=== PATIENT | female | born 1945 | race Caucasian/White ===

== ENCOUNTER 2017-05-02 00:08 | Inpatient (IN) | payer MEDICARE, MEDICAID ==
[2017-05-02] VITALS (14 sets, daily range): BP systolic 136–190; BP diastolic 54–78
[~2017-05-02] VITALS: Ht 167.6 cm; Wt 78.1 kg
[~2017-05-02 00:08] MED LIST: ALIS1TAB2 PO; ASPI-612 PO; ASPI325T11 PO; ASPI81TA44 PO; CHOL5000 PO; CLOP75TA57 PO; CRESTOR20 MG PO; DOCU-109 PO; EZET10TA18 PO; MOME13HF IH; Metoprolol Tartrate PO; NITR0.4T SL; TICA90TA PO; TIOT18CA IH; VALS320T2 PO
[2017-05-02] MEDS ORDERED: RANO500T2 PO (01:31)
[2017-05-02] MEDS ORDERED: RANI-275 PO (01:31)
[2017-05-02] MEDS ORDERED: CARV25TA2 PO (01:31)
[2017-05-02] MEDS ORDERED: VENTOLIN HFA18 GM INH (01:31)
[2017-05-02] MEDS ORDERED: PRAS10TA9 PO (01:31)
[2017-05-02] MEDS ORDERED: UMEC62.5 INH (01:31)
[2017-05-02] MEDS ORDERED: ONDANSETRON PF 4 MG/2 ML VIAL. IV PRN (06:45)
[2017-05-02] MEDS ORDERED: hydrALAZINE 20 MG/ML VIAL. IVP PRN (06:45)
[2017-05-02 07:43] LABS: HEMATOCRIT 38.9 % (36.0-47.0); HEMOGLOBIN 12.8 g/dL (12.0-15.5); RED BLOOD COUNT 4.17 x10^6/uL (3.50-5.40); RED CELL DISTRIBUTION WIDTH 13.5 % (11.5-14.5); WHITE BLOOD COUNT 5.6 x10^3/uL (4.0-11.0)
[2017-05-02 07:54] LABS: CALCIUM 8.7 mg/dL (8.5-10.1); CREATININE 1.3 mg/dL (0.6-1.0); GFR 40.3; MAGNESIUM 1.8 mg/dL (1.8-2.4); POTASSIUM 3.7 mmol/L (3.5-5.1)
[2017-05-02 08:04] LABS: INR 1.1 (0.8-1.1); PROTHROMBIN TIME PATIENT 13.9 SEC (11.7-14.0)
[2017-05-02] MEDS ORDERED: FLU VACC QS2017-18 (36MOS+)/PF 0.5 ML SYRINGE. VAX IM ONE (09:00)
--- NOTE | 2017-05-02 10:59 | CONS ---
DATE OF CONSULTATION: 05/02/2017 REASON FOR CONSULTATION: Bradycardia. HISTORY OF PRESENT ILLNESS: The patient is a pleasant 71-year-old woman who comes in to the hospital today in the setting of bradycardia. She does take carvedilol 25 mg b.i.d. and at home apparently has been having some lightheadedness and dizziness; and recently, prior to presentation, she had a syncopal event at the grocery store. Upon arrival to the ER, she was noted to be bradycardic with a heart rate of 38 and received 0.5 mg of atropine. She ultimately also was noted to have intermittent Mobitz type II block. She denies any chest pain, orthopnea, PND or lower extremity edema. She reports compliance with her medications. PAST MEDICAL HISTORY: 1. Coronary artery disease, status post PCI to the left main. 2. Hypertension. 3. Dyslipidemia. 4. Chronic obstructive pulmonary disease. SOCIAL HISTORY: The patient denies any current alcohol, tobacco or illicit drug use. ALLERGIES: No known drug allergies. HOME CARDIOVASCULAR MEDICATIONS: 1. Carvedilol 25 mg b.i.d. 2. Zetia 10 mg daily. 3. Effient 10 mg daily. 4. Rosuvastatin 20 mg daily. 5. Valsartan 320 mg daily. 6. Aspirin 81 mg daily. REVIEW OF SYSTEMS: Negative for 10 out of 14 systems review, unless otherwise mentioned above in the HPI. PHYSICAL EXAMINATION: VITAL SIGNS: Afebrile, heart rate 70, blood pressure 163/82 and pulse ox 97% on room air. GENERAL: She is alert and oriented, in no acute distress. Orthostatics are negative. HEAD AND NECK EXAMINATION: Unremarkable. CARDIAC: Regular rate and rhythm, without any murmurs, rubs or gallops. LUNGS: Clear to auscultation bilaterally. ABDOMEN: Soft, nontender and nondistended. EXTREMITIES: No clubbing, cyanosis or edema. NEUROLOGIC: No focal deficits. MUSCULOSKELETAL: No trauma. DIAGNOSTIC STUDIES: Hemoglobin 12.8, platelets 142,000. Creatinine 1.3. TSH 2.097. INR 1.1. Telemetry this morning reveals sinus rhythm with appropriate chronotropic response. IMPRESSION: 1. Bradycardia, possibly mediated secondary to medications. 2. Coronary artery disease. 3. Dyslipidemia. 4. Hypertension. RECOMMENDATIONS: 1. At this present time, we would hold her carvedilol and use amlodipine and hydralazine as needed for blood pressure management. 2. The patient is reluctant to get a pacemaker and I discussed the risks and benefits of pacemaker implantation. As an alternative, we will monitor her overnight. If she does not have any significant AV block, then we could consider discharge off of carvedilol and monitoring with Coumadin and ultimately decide if a pacemaker would be indicated. No driving until final determination is made. Thank you for this consultation. ARTHUR PRICE MD DR: CHUY/miguel a JOB#: [id number] / [id number] PATRICIA
[2017-05-02] MEDS: DOCUSATE SODIUM 100 MG CAPSULE. PO SCH ×2 (12:33→21:13)
[2017-05-02] MEDS: EZETIMIBE 10 MG TABLET. PO SCH (12:33)
[2017-05-02] MEDS: PRASUGREL 10 MG TABLET. PO SCH (12:33)
[2017-05-02] MEDS: RANOLAZINE 500 MG TAB.ER.12H PO SCH ×2 (12:33→21:14)
[2017-05-02] MEDS: FAMOTIDINE 20 MG TABLET. PO SCH (12:33)
[2017-05-02] MEDS: CHOLECALCIFEROL (VITAMIN D3) 5,000 UNIT CAPSULE PO SCH (12:34)
--- NOTE | 2017-05-02 13:02 | HP ---
ADMIT DATE: 05/02/2017 CHIEF COMPLAINT: Symptomatic bradycardia with syncope. HISTORY OF PRESENT ILLNESS: The patient is a pleasant 71-year-old female who was watching TV and she passed out. She was out for about 30 seconds. She states she awoke and then had two more episodes. The ambulance was called. She was noted the heart rate into the 30s. It should be noted that she is on negative chronotropic agents including Coreg. I have discussed the case with ER physician. We are going to admit the patient, hold her Coreg and consult Cardiology. PAST MEDICAL HISTORY: CHF, coronary artery disease, hypertension, hyperlipidemia, COPD, allergic rhinitis and chronic anticoagulation with Effient. ALLERGIES: None. FAMILY HISTORY: Coronary artery disease. SOCIAL HISTORY: She does not drink, smoke or take drugs. MEDICATIONS: Reviewed. REVIEW OF SYSTEMS: GENERAL: No history of weight change, weakness or fevers. SKIN: No bruising, hair changes or rashes. EYES: No blurred, double or loss of vision. NOSE AND THROAT: No history of nosebleeds, hoarseness or sore throat. HEART: No history of palpitations, chest pain or shortness of breath on exertion. LUNGS: Denies cough, hemoptysis, wheezing or shortness of breath. GASTROINTESTINAL: Denies changes in appetite, nausea, vomiting, diarrhea or constipation. GENITOURINARY: No history of frequency, urgency, hesitancy or nocturia. NEUROLOGIC: Denies history of numbness, tingling, tremor or weakness. PSYCHIATRIC: No history of panic, anxiety or depression. ENDOCRINE: No history of heat or cold intolerance, polyuria or polydipsia. EXTREMITIES: Denies muscle weakness, joint pain, pain on walking or stiffness. PHYSICAL EXAMINATION: VITAL SIGNS: Temperature afebrile, pulse 58, respirations 18 and blood pressure 142/90. GENERAL: She is alert and cooperative. HEART: Normal S1 and S2, at 58 beats per minute. LUNGS: Clear. ABDOMEN: Soft. EXTREMITIES: No edema. SKIN: No rashes. ENDOCRINE: No thyromegaly. LYMPHATICS: No cervical nodes. HEMATOPOIETIC: No bruising. LABORATORY DATA: Hematology normal. Electrolytes normal. INR 1.1. ASSESSMENT AND PLAN: Syncopal episode secondary to bradycardia, probably secondary to Coreg. We will hold the Coreg. Consult Cardiology, cardiac enzymes and serial EKGs. Continue other home medicines. Hope to discharge in a day or two if her bradycardia resolves. ERIKA ROBLES DO DR: IVAN/miguel a JOB#: [id number] / [id number]
[2017-05-02] MEDS ORDERED: ATROPINE 0.5 MG/5 ML DISP.SYRIN. IV PRN (17:15)
[2017-05-02] MEDS: ACETAMINOPHEN 325 MG TABLET. PO PRN (19:30)
[2017-05-02] MEDS: ATORVASTATIN CALCIUM 40 MG TABLET. PO SCH (21:13)
[2017-05-03] VITALS (24 sets, daily range): BP systolic 114–190; BP diastolic 45–89
[2017-05-03] MEDS ORDERED: LIDOCAINE 2%/EPI 1:100,000 20 ML VIAL. ONE (07:22)
[2017-05-03] MEDS ORDERED: BACITRACIN 50,000 UNIT in IV NORMAL SALINE 250ML 250 ML IRR ONE (07:45)
--- NOTE | 2017-05-03 07:47 | PDOC ---
MODERATE SEDATION ASSESSMENT RISKS/ALTERNATIVES Risks/Alternatives Risks and alternatives of this type of sedation and procedure discussed with: RISK/ALTERNATIVES: Patient H & P ON CHART H & P H & P on chart and reviewed for co-morbid conditions and appropriate labs. H&P ON CHART: Yes STATUS PREG STATUS ASSESSED: N/A MEDS/ALLERGIES REVIEWED Meds/Allergies Reviewed Medications and Allergies including time and route of recently administered narcotics and sedatives. MEDS/ALLERGIES REVIEWED: Yes ASA RATING ASA RATING: III AIRWAY ASSESSMENT Airway Assessment Airway patency, oral function limitations, presence of caps, crowns, dentures, partials, and ability to extend neck assessed. AIRWAY ASSESSMENT: Yes MALLAMPATI SCORE MALLAMPATI SCORE: III PRE-SEDATION ASSESSMENT PRE-SEDATION ASSESSMENT: Yes ARTHUR PRICE MD May 03, 2017 07:47
[2017-05-03] MEDS ORDERED: fentaNYL PF VIAL 250 MCG/5 ML VIAL ONE (08:03)
[2017-05-03] MEDS ORDERED: MIDAZOLAM HCL/PF 5 MG/5 ML VIAL. ONE (08:03)
[2017-05-03] MEDS ORDERED: LIDOCAINE 2%/EPI 1:100,000 20 ML VIAL. IJ ONE (08:45)
[2017-05-03] MEDS ORDERED: fentaNYL PF VIAL 250 MCG/5 ML VIAL IV ONE (08:45)
[2017-05-03] MEDS ORDERED: MIDAZOLAM HCL/PF 5 MG/5 ML VIAL. IV ONE (08:45)
[2017-05-03] MEDS: PRASUGREL 10 MG TABLET. PO SCH (09:00)
[2017-05-03] MEDS ORDERED: hydrALAZINE 20 MG/ML VIAL. ONE (09:22)
[2017-05-03] MEDS ORDERED: hydrALAZINE 20 MG/ML VIAL. IVP ONE (09:30)
[2017-05-03] MEDS ORDERED: ONDANSETRON PF 4 MG/2 ML VIAL. IV PRN (10:00)
[2017-05-03] MEDS ORDERED: NO ANTICOAGULANT THERAPY. MC PRN (10:00)
--- NOTE | 2017-05-03 11:06 | RAD ---
Single view chest History:Post pacemaker An AP view of the chest is submitted. Comparison: 07/19/2014. Findings: Is single view of the chest is submitted. There has been a median sternotomy, fracture of the second wire from above. Cardiac silhouette is within normal limits. There is dual lead left electronic cardiac device, distal lead closer to the ventricular apex and proximal lead in the region of right atrium. There is no pneumothorax, dependent pleural fluid, lobar infiltrate. Impression: 1. There is left electronic cardiac device, no pneumothorax.
--- NOTE | 2017-05-03 11:19 | PDOC ---
PROGRESS NOTES Chief Complaint Chief Complaint Syncope CHF Coronary artery disease Hypertension Hyperlipidemia COPD Allergic rhinitis History of Present Illness History of Present Illness Pt seen and examined today in the ICU Pt just returning from surgery - cooperative and comfortable Vitals Vitals Vital Signs Date Time Temp Pulse Resp B/P (MAP) Pulse Ox O2 Delivery O2 Flow Rate FiO2 05/03/17 10:00 70 15 114/60 (78) 93 Room Air 05/03/17 09:33 2.0 05/03/17 08:00 98.6 98.6 Physical Exam General: Cooperative, No acute distress Heart: Normal S1, Normal S2 Lungs: Clear, Other (No crackles or wheezes) Abdomen: Normal bowel sounds, Soft Extremities: No clubbing, No cyanosis Skin: No breakdown, No significant lesion Review of Systems Review of Systems General: denies F/C, N/V. Admits to fatigue Assessment and Plan Assessmemt and Plan Assessment: Syncope CHF Coronary artery disease Hypertension Hyperlipidemia COPD Allergic rhinitis Plan: Possible d/c to SNU on Friday Continue home medications Continue cardiac monitoring Consulted PT/OT Recheck labs in am Problems: Comment Review of Relevant I have reviewed the following items surekha (where applicable) has been applied. Labs Laboratory Tests Test 05/02/17 07:25 White Blood Count 5.6 x10^3/uL (4.0-11.0) Red Blood Count 4.17 x10^6/uL (3.50-5.40) Hemoglobin 12.8 g/dL (12.0-15.5) Hematocrit 38.9 % (36.0-47.0) Mean Corpuscular Volume 93 fL (79-100) Mean Corpuscular Hemoglobin 31 pg (25-35) Mean Corpuscular Hemoglobin Concent 33 g/dL (31-37) Red Cell Distribution Width 13.5 % (11.5-14.5) Platelet Count 142 x10^3/uL (140-400) Prothrombin Time 13.9 SEC (11.7-14.0) Prothromb Time International Ratio 1.1 (0.8-1.1) Sodium Level 145 mmol/L (136-145) Potassium Level 3.7 mmol/L (3.5-5.1) Chloride Level 110 mmol/L (98-107) Carbon Dioxide Level 28 mmol/L (21-32) Anion Gap 7 (6-14) Blood Urea Nitrogen 16 mg/dL (7-20) Creatinine 1.3 mg/dL (0.6-1.0) Estimated GFR (Cockcroft-Gault) 40.3 Glucose Level 93 mg/dL (70-99) Calcium Level 8.7 mg/dL (8.5-10.1) Magnesium Level 1.8 mg/dL (1.8-2.4) Thyroid Stimulating Hormone (TSH) 2.097 uIU/mL (0.358-3.74) Medications Current Medications Influenza Virus Vaccine Quadrival (Fluarix Quad 8443-9000 Syringe) 0.5 ml ONCE ONCE VAX IM ; Start 05/02/17 at 09:00; Stop 05/02/17 at 09:01; Status DC Ondansetron HCl (Zofran) 4 mg PRN Q6HRS PRN IV NAUSEA/VOMITING; Start at 06:45 Acetaminophen (Tylenol) 650 mg PRN Q6HRS PRN PO MILD PAIN Last administered on 05/02/17 19:30; Start 05/02/17 at 06:45 Hydralazine HCl (Apresoline Inj) 10 mg PRN Q4HRS PRN IVP ELEVATED BP, SEE COMMENTS; Start 05/02/17 at 06:45 Vitamin D (Vitamin D3) 5,000 unit DAILY PO Last administered on 05/02/17 12: 34; Start 05/02/17 at 09:00 Docusate Sodium (Colace) 100 mg BID PO Last administered on 05/02/17 21:13; Start 05/02/17 at 09:00 EZETIMIBE (Zetia) 10 mg DAILY PO Last administered on 05/02/17 12:33; Start 05/02/17 at 09:00 Ranolazine (Ranexa) 500 mg BID PO Last administered on 05/02/17 21:14; Start 05/02/17 at 09:00 Famotidine (Pepcid) 20 mg DAILY PO Last administered on 05/02/17 12:33; Start 05/02/17 at 09:00 Atorvastatin Calcium (Lipitor) 80 mg QHS PO Last administered on 05/02/17 21: 13; Start 05/02/17 at 21:00 Prasugrel (Effient) 10 mg DAILY PO Last administered on 05/02/17 12:33; Start 05/02/17 at 12:30 Atropine Sulfate 0.5 mg 1X PRN PRN IV PER PROTOCOL; Start 05/02/17 at 17:15 Bacitracin 09541 unit/Sodium Chloride 250 ml @ 250 mls/hr 1X ONCE IRR Last administered on 05/03/17 08:57; Start 05/03/17 at 07:45; Stop 05/03/17 at 08 :44; Status DC Cefazolin Sodium/ Dextrose 50 ml @ 100 mls/hr 1X ONCE IV Last administered on 05/03/17 08:58; Start 05/03/17 at 07:45; Stop 05/03/17 at 08:14; Status DC Midazolam HCl (Versed) 5 mg 1X ONCE IV Last administered on 05/03/17 09:01; Start 05/03/17 at 08:45; Stop 05/03/17 at 08:46; Status DC Fentanyl Citrate (Fentanyl 5ml Vial) 250 mcg 1X ONCE IV Last administered on 05/03/17 09:03; Start 05/03/17 at 08:45; Stop 05/03/17 at 08:46; Status DC Lidocaine/ Epinephrine (Xylocaine 2%-Epi 1:100,000) 40 ml 1X ONCE IJ Last administered on 05/03/17 08:57; Start 05/03/17 at 08:45; Stop 05/03/17 at 08 :46; Status DC Hydralazine HCl (Apresoline Inj) 10 mg 1X ONCE IVP Last administered on 09:48; Start 05/03/17 at 09:30; Stop 05/03/17 at 09:31; Status DC Info 1 ea CONT PRN PRN MC PER PROTOCOL; Start 05/03/17 at 10:00 Cefazolin Sodium 50 ml @ 100 mls/hr 1X ONCE IV ; Start 05/03/17 at 10:00; Stop 05/03/17 at 10:29; Status DC Ondansetron HCl (Zofran) 4 mg PRN Q6HRS PRN IV NAUSEA/VOMITING; Start at 10:00 Oxycodone/ Acetaminophen (Percocet 5/325) 1 tab PRN Q4HRS PRN PO MILD PAIN; Start 05/03/17 at 10:00 Active Scripts Active Aspirin Ec (Aspirin) 81 Mg Tablet. 81 Mg PO [id number] Reported Acid Citrus Fruit Colorer (Ranitidine Hcl) 150 Mg Tablet 150 Mg PO BID Effient (Prasugrel Hcl) 10 Mg Tablet 10 Mg PO DAILY Incruse Ellipta (Umeclidinium Ford) 62.5 Mcg Blst.w.dev 1 Inh INH Carvedilol 25 Mg Tablet 25 Mg PO BID Ventolin Hfa Inhaler (Albuterol Sulfate) 18 Gm Hfa.aer.ad 2 Inh INH Vitamin D3 (Cholecalciferol (Vitamin D3)) 5,000 Unit Capsule 5,000 Unit PO DAILY Colace (Docusate Sodium) 100 Mg Capsule 1 Cap PO BID Crestor (Rosuvastatin Calcium) 20 Mg Tablet 20 Mg PO HS Zetia (Ezetimibe) 10 Mg Tablet 10 Mg PO DAILY Diovan (Valsartan) 320 Mg Tablet 1 Tab PO DAILY Vitals/I & O Vital Sign - Last 24 Hours 05/02/17 05/02/17 05/02/17 05/02/17 12:33 15:00 17:30 18:00 Temp 98.9 98.9 Pulse 63 64 70 Resp 28 24 B/P (MAP) 147/61 159/62 (94) 190/77 (114) Pulse Ox 98 91 O2 Delivery Room Air Room Air Room Air 05/02/17 05/02/17 05/02/17 05/02/17 18:00 19:00 20:00 21:00 Temp 98.5 98.5 Pulse 60 65 63 61 Resp 21 21 22 20 B/P (MAP) 180/69 (106) 175/58 (97) 154/56 (88) 146/58 (87) Pulse Ox 93 95 93 92 O2 Delivery Room Air Room Air Room Air Room Air 05/02/17 05/02/17 05/02/17 05/03/17 21:14 22:00 23:00 00:00 Temp 98.7 98.7 Pulse 62 71 66 62 Resp 24 22 20 B/P (MAP) 146/58 163/78 (106) 171/73 (105) 167/78 (107) Pulse Ox 95 94 93 O2 Delivery Room Air Room Air Room Air 05/03/17 05/03/17 05/03/17 05/03/17 01:00 02:00 03:00 04:00 Temp 98.9 98.9 Pulse 61 58 59 58 Resp 15 14 15 23 B/P (MAP) 164/70 (101) 158/72 (100) 153/58 (89) 164/84 (110) Pulse Ox 91 92 95 93 O2 Delivery Room Air Room Air Room Air Room Air 05/03/17 05/03/17 05/03/17 05/03/17 05:00 06:00 07:00 08:00 Temp 98.6 98.6 Pulse 56 53 54 Resp 18 15 15 B/P (MAP) 182/71 (108) 172/48 (89) 183/60 (101) Pulse Ox 94 92 94 O2 Delivery Room Air Room Air Room Air Room Air 05/03/17 05/03/17 05/03/17 05/03/17 09:00 09:03 09:33 09:48 Pulse 70 75 Resp 16 16 B/P (MAP) Pulse Ox 97 98 O2 Delivery Room Air Nasal Cannula Nasal Cannula O2 Flow Rate 2.0 2.0 05/03/17 10:00 Pulse 70 Resp 15 B/P (MAP) 114/60 (78) Pulse Ox 93 O2 Delivery Room Air Intake and Output 05/02/17 05/02/17 05/03/17 15:00 23:00 07:00 Intake Total 500 ml 250 ml Output Total 500 ml Balance 0 ml 250 ml ERIKA ROBLES III DO May 03, 2017 11:19
[2017-05-03] MEDS: FAMOTIDINE 20 MG TABLET. PO SCH (15:55)
[2017-05-03] MEDS: CHOLECALCIFEROL (VITAMIN D3) 5,000 UNIT CAPSULE PO SCH (15:55)
[2017-05-03] MEDS: DOCUSATE SODIUM 100 MG CAPSULE. PO SCH ×2 (15:55→20:10)
[2017-05-03] MEDS: RANOLAZINE 500 MG TAB.ER.12H PO SCH ×2 (15:55→20:11)
[2017-05-03] MEDS: EZETIMIBE 10 MG TABLET. PO SCH (15:55)
[2017-05-03] MEDS: ATORVASTATIN CALCIUM 40 MG TABLET. PO SCH (20:11)
[2017-05-03] MEDS: oxyCODONE/APAP 5/325 1 TAB TABLET PO PRN (22:18)
[2017-05-04 02:46] VITALS: BP 156/64
[2017-05-04] MEDS: oxyCODONE/APAP 5/325 1 TAB TABLET PO PRN ×2 (02:55→12:45)
[2017-05-04 05:27] LABS: BASO % 0 % (0-3); EOS % 1 % (0-3); HEMATOCRIT 38.5 % (36.0-47.0); HEMOGLOBIN 12.6 g/dL (12.0-15.5); LYMPH # 1.8 x10^3/uL (1.0-4.8); LYMPH % 22 % (24-48); MEAN CORPUSCULAR HEMOGLOBIN 31 pg (25-35); MEAN CORPUSCULAR HGB CONC 33 g/dL (31-37); MEAN CORPUSCULAR VOLUME 95 fL (79-100); MONO % 8 % (0-9); NEUT % 69 % (31-73); PLATELET COUNT 129 x10^3/uL (140-400); RED BLOOD COUNT 4.04 x10^6/uL (3.50-5.40); RED CELL DISTRIBUTION WIDTH 13.8 % (11.5-14.5); WHITE BLOOD COUNT 8.1 x10^3/uL (4.0-11.0)
[2017-05-04 07:00] VITALS: BP 134/75
[2017-05-04 07:23] LABS: CALCIUM 8.9 mg/dL (8.5-10.1); CREATININE 1.2 mg/dL (0.6-1.0); GFR 44.2; POTASSIUM 3.6 mmol/L (3.5-5.1)
[2017-05-04] MEDS: DOCUSATE SODIUM 100 MG CAPSULE. PO SCH ×2 (08:47→20:27)
[2017-05-04] MEDS: EZETIMIBE 10 MG TABLET. PO SCH (08:47)
[2017-05-04] MEDS: FAMOTIDINE 20 MG TABLET. PO SCH (08:47)
[2017-05-04] MEDS: CHOLECALCIFEROL (VITAMIN D3) 5,000 UNIT CAPSULE PO SCH (08:48)
[2017-05-04] MEDS: RANOLAZINE 500 MG TAB.ER.12H PO SCH ×2 (08:48→20:27)
[2017-05-04] MEDS: PRASUGREL 10 MG TABLET. PO SCH (09:00)
--- NOTE | 2017-05-04 10:14 | RAD ---
Two view chest History:1 day post pacemaker implantation . PA and lateral views of the chest are submitted. Comparison: 05/03/2017 Findings: There is again dual lead left electronic cardiac device. No pneumothorax is identified. There again has been a median sternotomy, again fracture of the second counting from above. Heart size is stable. There is mild interstitial opacity somewhat more apparent on this exam although may be due to differences in technique. There is no significant dependent pleural fluid on the lateral view. Impression: There is again dual lead left electronic cardiac device, no pneumothorax.
[2017-05-04 11:00] VITALS: BP 132/70
--- NOTE | 2017-05-04 13:34 | CARD ---
APPROVED REPORT Procedure(s) performed: Moderate sedation: 106 minutes Dual chamber pacemaker implantation HISTORY The patient is a 71 year-old female with a history of : hypertension, dyslipidemia. INDICATION The indication(s) include : arrhythmia, syncope. PROCEDURE NARRATIVE 30 mL of 2% lidocaine was infiltrated into the skin and subcutaneous tissues for local anesthesia. A n incision was made over the left infraclavicular fossa and using blunt dissection and cautery a pock et was created. Venous access was obtained in the left subclavian vein and 9 and 7 Vietnamese sheaths we re inserted. Subsequently, a [employer] bipolar active fixation right ventricular lead model [id number], serial num manju [id number] was advanced under fluoroscopic guidance and the tip was positioned in the right ventri cular apex. Following this, a [employer] bipolar active fixation right atrial lead model [id number], serial number [id number] was placed in the right atrial appendage under fluoroscopy guidance. The le ads were secured into place and were attached to a [employer] dual-chamber permanent pacemaker generato r model [id number], serial number [id number]. This was placed in the pocket that was subsequently closed in 3 layers. Hemostasis was secured. At the end of procedure, the right ventricular lead showed sensing amplitude of 6.1 mV, impedance of 731 ohms and a threshold of 0.75 volts. The right atrial lead showed a sensing amplitude of 5 milliv olts, impedance of 560 ohms and a threshold of 0.75 volts. Patient tolerated the procedure well. The re were no immediate complications. Conclusion 1. Successful insertion of a [employer] Dual Chamber MRI compatible pacemaker for complete heart block and syncope.
--- NOTE | 2017-05-04 14:35 | PDOC ---
PROGRESS NOTES Chief Complaint Chief Complaint History of Present Illness History of Present Illness Pt seen and examined today in the ICU Pt sitting upright in bed Low O2 sat when sleeping Vitals Vitals Vital Signs Date Time Temp Pulse Resp B/P (MAP) Pulse Ox O2 Delivery O2 Flow Rate FiO2 05/04/17 13:45 94 Nasal Cannula 2.0 05/04/17 11:00 97.8 66 18 132/70 (90) 97.8 Physical Exam General: Alert, Oriented X3, Cooperative, No acute distress Heart: Normal S1, Normal S2 Lungs: Clear, Other (No crackles or wheezes) Abdomen: Normal bowel sounds, Soft Extremities: No clubbing, No cyanosis Skin: No breakdown, No significant lesion Labs LABS Laboratory Tests Test 05/04/17 03:30 05/04/17 07:00 White Blood Count 8.1 x10^3/uL (4.0-11.0) Red Blood Count 4.04 x10^6/uL (3.50-5.40) Hemoglobin 12.6 g/dL (12.0-15.5) Hematocrit 38.5 % (36.0-47.0) Mean Corpuscular Volume 95 fL (79-100) Mean Corpuscular Hemoglobin 31 pg (25-35) Mean Corpuscular Hemoglobin Concent 33 g/dL (31-37) Red Cell Distribution Width 13.8 % (11.5-14.5) Platelet Count 129 x10^3/uL (140-400) Neutrophils (%) (Auto) 69 % (31-73) Lymphocytes (%) (Auto) 22 % (24-48) Monocytes (%) (Auto) 8 % (0-9) Eosinophils (%) (Auto) 1 % (0-3) Basophils (%) (Auto) 0 % (0-3) Neutrophils # (Auto) 5.6 x10^3uL (1.8-7.7) Lymphocytes # (Auto) 1.8 x10^3/uL (1.0-4.8) Monocytes # (Auto) 0.6 x10^3/uL (0.0-1.1) Eosinophils # (Auto) 0.1 x10^3/uL (0.0-0.7) Basophils # (Auto) 0.0 x10^3/uL (0.0-0.2) Sodium Level 143 mmol/L (136-145) Potassium Level 3.6 mmol/L (3.5-5.1) Chloride Level 107 mmol/L (98-107) Carbon Dioxide Level 28 mmol/L (21-32) Anion Gap 8 (6-14) Blood Urea Nitrogen 18 mg/dL (7-20) Creatinine 1.2 mg/dL (0.6-1.0) Estimated GFR (Cockcroft-Gault) 44.2 Glucose Level 94 mg/dL (70-99) Calcium Level 8.9 mg/dL (8.5-10.1) Review of Systems Review of Systems Heart: denies any chest pain Lungs: denies any SOA GI: denies any N/V Assessment and Plan Assessmemt and Plan Assessment: Syncope CHF Coronary artery disease Hypertension Hyperlipidemia COPD Allergic rhinitis Plan: Six minute walk test to assess O2 sat. Possible d/c to SNU, awaiting subspecialty input Continue home medications Continue PT/OT Recheck labs in am Follow up with PCP after discharge Problems: Comment Review of Relevant I have reviewed the following items surekha (where applicable) has been applied. Labs Laboratory Tests Test 05/03/17 05:00 05/04/17 03:30 05/04/17 07:00 Nasal Screen MRSA (PCR) Negative (Negative) White Blood Count 8.1 x10^3/uL (4.0-11.0) Red Blood Count 4.04 x10^6/uL (3.50-5.40) Hemoglobin 12.6 g/dL (12.0-15.5) Hematocrit 38.5 % (36.0-47.0) Mean Corpuscular Volume 95 fL (79-100) Mean Corpuscular Hemoglobin 31 pg (25-35) Mean Corpuscular Hemoglobin Concent 33 g/dL (31-37) Red Cell Distribution Width 13.8 % (11.5-14.5) Platelet Count 129 x10^3/uL (140-400) Neutrophils (%) (Auto) 69 % (31-73) Lymphocytes (%) (Auto) 22 % (24-48) Monocytes (%) (Auto) 8 % (0-9) Eosinophils (%) (Auto) 1 % (0-3) Basophils (%) (Auto) 0 % (0-3) Neutrophils # (Auto) 5.6 x10^3uL (1.8-7.7) Lymphocytes # (Auto) 1.8 x10^3/uL (1.0-4.8) Monocytes # (Auto) 0.6 x10^3/uL (0.0-1.1) Eosinophils # (Auto) 0.1 x10^3/uL (0.0-0.7) Basophils # (Auto) 0.0 x10^3/uL (0.0-0.2) Sodium Level 143 mmol/L (136-145) Potassium Level 3.6 mmol/L (3.5-5.1) Chloride Level 107 mmol/L (98-107) Carbon Dioxide Level 28 mmol/L (21-32) Anion Gap 8 (6-14) Blood Urea Nitrogen 18 mg/dL (7-20) Creatinine 1.2 mg/dL (0.6-1.0) Estimated GFR (Cockcroft-Gault) 44.2 Glucose Level 94 mg/dL (70-99) Calcium Level 8.9 mg/dL (8.5-10.1) Laboratory Tests Test 05/04/17 03:30 05/04/17 07:00 White Blood Count 8.1 x10^3/uL (4.0-11.0) Red Blood Count 4.04 x10^6/uL (3.50-5.40) Hemoglobin 12.6 g/dL (12.0-15.5) Hematocrit 38.5 % (36.0-47.0) Mean Corpuscular Volume 95 fL (79-100) Mean Corpuscular Hemoglobin 31 pg (25-35) Mean Corpuscular Hemoglobin Concent 33 g/dL (31-37) Red Cell Distribution Width 13.8 % (11.5-14.5) Platelet Count 129 x10^3/uL (140-400) Neutrophils (%) (Auto) 69 % (31-73) Lymphocytes (%) (Auto) 22 % (24-48) Monocytes (%) (Auto) 8 % (0-9) Eosinophils (%) (Auto) 1 % (0-3) Basophils (%) (Auto) 0 % (0-3) Neutrophils # (Auto) 5.6 x10^3uL (1.8-7.7) Lymphocytes # (Auto) 1.8 x10^3/uL (1.0-4.8) Monocytes # (Auto) 0.6 x10^3/uL (0.0-1.1) Eosinophils # (Auto) 0.1 x10^3/uL (0.0-0.7) Basophils # (Auto) 0.0 x10^3/uL (0.0-0.2) Sodium Level 143 mmol/L (136-145) Potassium Level 3.6 mmol/L (3.5-5.1) Chloride Level 107 mmol/L (98-107) Carbon Dioxide Level 28 mmol/L (21-32) Anion Gap 8 (6-14) Blood Urea Nitrogen 18 mg/dL (7-20) Creatinine 1.2 mg/dL (0.6-1.0) Estimated GFR (Cockcroft-Gault) 44.2 Glucose Level 94 mg/dL (70-99) Calcium Level 8.9 mg/dL (8.5-10.1) Medications Current Medications Influenza Virus Vaccine Quadrival (Fluarix Quad [id number] Syringe) 0.5 ml ONCE ONCE VAX IM ; Start 05/02/17 at 09:00; Stop 05/02/17 at 09:01; Status DC Ondansetron HCl (Zofran) 4 mg PRN Q6HRS PRN IV NAUSEA/VOMITING; Start at 06:45; Stop 05/04/17 at 08:49; Status DC Acetaminophen (Tylenol) 650 mg PRN Q6HRS PRN PO MILD PAIN Last administered on 05/02/17 19:30; Start 05/02/17 at 06:45 Hydralazine HCl (Apresoline Inj) 10 mg PRN Q4HRS PRN IVP ELEVATED BP, SEE COMMENTS; Start 05/02/17 at 06:45 Vitamin D (Vitamin D3) 5,000 unit DAILY PO Last administered on 05/04/17 08: 48; Start 05/02/17 at 09:00 Docusate Sodium (Colace) 100 mg BID PO Last administered on 05/04/17 08:47; Start 05/02/17 at 09:00 EZETIMIBE (Zetia) 10 mg DAILY PO Last administered on 05/04/17 08:47; Start 05/02/17 at 09:00 Ranolazine (Ranexa) 500 mg BID PO Last administered on 05/04/17 08:48; Start 05/02/17 at 09:00 Famotidine (Pepcid) 20 mg DAILY PO Last administered on 05/04/17 08:47; Start 05/02/17 at 09:00 Atorvastatin Calcium (Lipitor) 80 mg QHS PO Last administered on 05/03/17 20: 11; Start 05/02/17 at 21:00 Prasugrel (Effient) 10 mg DAILY PO Last administered on 05/02/17 12:33; Start 05/02/17 at 12:30 Atropine Sulfate 0.5 mg 1X PRN PRN IV PER PROTOCOL; Start 05/02/17 at 17:15 Bacitracin 58738 unit/Sodium Chloride 250 ml @ 250 mls/hr 1X ONCE IRR Last administered on 05/03/17 08:57; Start 05/03/17 at 07:45; Stop 05/03/17 at 08 :44; Status DC Cefazolin Sodium/ Dextrose 50 ml @ 100 mls/hr 1X ONCE IV Last administered on 05/03/17 08:58; Start 05/03/17 at 07:45; Stop 05/03/17 at 08:14; Status DC Midazolam HCl (Versed) 5 mg 1X ONCE IV Last administered on 05/03/17 09:01; Start 05/03/17 at 08:45; Stop 05/03/17 at 08:46; Status DC Fentanyl Citrate (Fentanyl 5ml Vial) 250 mcg 1X ONCE IV Last administered on 05/03/17 09:03; Start 05/03/17 at 08:45; Stop 05/03/17 at 08:46; Status DC Lidocaine/ Epinephrine (Xylocaine 2%-Epi 1:100,000) 40 ml 1X ONCE IJ Last administered on 05/03/17 08:57; Start 05/03/17 at 08:45; Stop 05/03/17 at 08 :46; Status DC Hydralazine HCl (Apresoline Inj) 10 mg 1X ONCE IVP Last administered on 09:48; Start 05/03/17 at 09:30; Stop 05/03/17 at 09:31; Status DC Info 1 ea CONT PRN PRN MC PER PROTOCOL; Start 05/03/17 at 10:00 Cefazolin Sodium 50 ml @ 100 mls/hr 1X ONCE IV Last administered on 10:00; Start 05/03/17 at 10:00; Stop 05/03/17 at 10:29; Status DC Ondansetron HCl (Zofran) 4 mg PRN Q6HRS PRN IV NAUSEA/VOMITING; Start at 10:00 Oxycodone/ Acetaminophen (Percocet 5/325) 1 tab PRN Q4HRS PRN PO MILD PAIN Last administered on 05/04/17 12:45; Start 05/03/17 at 10:00 Active Scripts Active Aspirin Ec (Aspirin) 81 Mg Tablet.dr 81 Mg PO DAILYWBKFT Reported Acid Analysis Intern (Ranitidine Hcl) 150 Mg Tablet 150 Mg PO BID Effient (Prasugrel Hcl) 10 Mg Tablet 10 Mg PO DAILY Incruse Ellipta (Umeclidinium [place]) 62.5 Mcg Blst.w.dev 1 Inh INH Carvedilol 25 Mg Tablet 25 Mg PO BID Ventolin Hfa Inhaler (Albuterol Sulfate) 18 Gm Hfa.aer.ad 2 Inh INH Vitamin D3 (Cholecalciferol (Vitamin D3)) 5,000 Unit Capsule 5,000 Unit PO DAILY Colace (Docusate Sodium) 100 Mg Capsule 1 Cap PO BID Crestor (Rosuvastatin Calcium) 20 Mg Tablet 20 Mg PO HS Zetia (Ezetimibe) 10 Mg Tablet 10 Mg PO DAILY Diovan (Valsartan) 320 Mg Tablet 1 Tab PO DAILY Vitals/I & O Vital Sign - Last 24 Hours 05/03/17 05/03/17 05/03/17 05/03/17 15:00 15:55 16:00 17:54 Pulse 66 66 74 Resp 19 20 B/P (MAP) 140/69 (92) 140/69 157/89 (111) Pulse Ox 96 97 O2 Delivery Nasal Cannula Nasal Cannula Nasal Cannula O2 Flow Rate 2.0 2.0 2.0 05/03/17 05/03/17 05/03/17 05/03/17 19:44 20:00 20:11 22:18 Temp 99.0 99.0 Pulse 67 67 Resp 16 20 B/P (MAP) 151/65 (93) 151/65 Pulse Ox 94 94 O2 Delivery Room Air Nasal Cannula Nasal Cannula O2 Flow Rate 2.0 2.0 05/03/17 05/04/17 05/04/17 05/04/17 22:25 02:46 02:55 03:55 Temp 97.8 98.7 97.8 98.7 Pulse 66 71 Resp 16 16 20 20 B/P (MAP) 161/79 (106) 156/64 (94) Pulse Ox 98 97 97 O2 Delivery Nasal Cannula Nasal Cannula Nasal Cannula O2 Flow Rate 2.0 2.0 2.0 05/04/17 05/04/17 05/04/17 05/04/17 07:00 07:41 08:48 11:00 Temp 97.8 97.8 97.8 97.8 Pulse 72 75 66 Resp 18 18 B/P (MAP) 134/75 (94) 134/75 132/70 (90) Pulse Ox 94 94 O2 Delivery Room Air Nasal Cannula Room Air O2 Flow Rate 2.0 05/04/17 05/04/17 12:45 13:45 Pulse Ox 94 94 O2 Delivery Room Air Nasal Cannula O2 Flow Rate 2.0 Intake and Output 05/03/17 05/03/17 05/04/17 15:00 23:00 07:00 Intake Total 0 ml 100 ml Balance 0 ml 100 ml ERIKA ROBLES III DO May 04, 2017 14:35
[2017-05-04 15:01] VITALS: BP 148/60
--- NOTE | 2017-05-04 15:53 | PDOC ---
CARDIOLOGY PROGRESS NOTE SUBJECTIVE: No acute events overnight. Significant pain in the left insertion site. No hematoma OBJECTIVE: Vital SIgns: Vital Signs Date Time Temp Pulse Resp B/P (MAP) Pulse Ox O2 Delivery O2 Flow Rate FiO2 05/04/17 15:01 97.8 75 18 148/60 (89) 90 Room Air 97.8 05/04/17 13:45 2.0 I & O Intake and Output 05/04/17 07:00 Intake Total 100 ml Balance 100 ml Intake Oral 100 ml # Voids 1 Objective: GEN.: No apparent distress. Alert and oriented. HEENT: Head is normocephalic, atraumatic NECK: Supple. LUNGS: Clear to auscultation. HEART: RRR, S1, S2 present. Peripheral pulses intact ABDOMEN: Soft, nontender. Positive bowel sounds. EXTREMITIES: Without any cyanosis. NEUROLOGIC: Normal speech, normal tone PSYCHIATRIC: Normal affect, normal mood. SKIN: No ulcerations CURRENT MEDICATIONS: Atorvastatin 80mg daily Prasugrel 10mg daily (Held) Renexa 500mg bid Zetia 10mg daily ASA 81mg daily (started today) Coreg - stopped previously due to elyssa DIAGNOSTIC TESTING: Hgb 12.6 (stable) Cr wnl. CXR - normal lead placement. Mild vascular congestion. ASSESSMENT: 1. 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 HTN 3. CAD s/p PCI to the LM Problems: PLAN: 1. Continue analgesia, supportive care. Pacer checked this a.m and functioning well. 2. Will f/u in the office in 10 days for wound check. No active hematoma at this time. 3. Restart prasugrel tomorrow if no hematoma in a.m. 4. outpt eval for BP to determine need for restarting coreg. Plan for DC tomorrow if stable overnight. ARTHUR PRICE MD May 04, 2017 15:53
[2017-05-04] MEDS: ASPIRIN ENTERIC COATED 81 MG TABLET.DR. PO SCH (15:56)
[2017-05-04] MEDS ORDERED: FUROSEMIDE 20 MG/2 ML VIAL. IVP ONE (16:00)
[2017-05-04 19:55] VITALS: BP 153/74
[2017-05-04] MEDS: ACETAMINOPHEN 325 MG TABLET. PO PRN (20:26)
[2017-05-04] MEDS: ATORVASTATIN CALCIUM 40 MG TABLET. PO SCH (20:27)
[2017-05-04 22:55] VITALS: BP 132/69
[2017-05-05 03:05] VITALS: BP 133/69
[2017-05-05 05:07] LABS: BASO % 1 % (0-3); EOS % 2 % (0-3); HEMATOCRIT 39.5 % (36.0-47.0); HEMOGLOBIN 13.1 g/dL (12.0-15.5); LYMPH # 1.3 x10^3/uL (1.0-4.8); LYMPH % 21 % (24-48); MEAN CORPUSCULAR HEMOGLOBIN 31 pg (25-35); MEAN CORPUSCULAR HGB CONC 33 g/dL (31-37); MEAN CORPUSCULAR VOLUME 93 fL (79-100); MONO % 7 % (0-9); NEUT % 69 % (31-73); PLATELET COUNT 130 x10^3/uL (140-400); RED BLOOD COUNT 4.26 x10^6/uL (3.50-5.40); RED CELL DISTRIBUTION WIDTH 13.5 % (11.5-14.5); WHITE BLOOD COUNT 6.2 x10^3/uL (4.0-11.0)
[2017-05-05 05:35] LABS: CALCIUM 8.9 mg/dL (8.5-10.1); CREATININE 1.1 mg/dL (0.6-1.0); GFR 48.8; POTASSIUM 3.2 mmol/L (3.5-5.1)
[2017-05-05 07:00] VITALS: BP 133/58
[2017-05-05] MEDS ORDERED: POTASSIUM CHLORIDE 20 MEQ TABLET.ER. PO ONE (08:30)
[2017-05-05] MEDS: PRASUGREL 10 MG TABLET. PO SCH (08:46)
[2017-05-05] MEDS: EZETIMIBE 10 MG TABLET. PO SCH (08:46)
[2017-05-05] MEDS: ASPIRIN ENTERIC COATED 81 MG TABLET.DR. PO SCH (08:46)
[2017-05-05] MEDS: CHOLECALCIFEROL (VITAMIN D3) 5,000 UNIT CAPSULE PO SCH (08:46)
[2017-05-05] MEDS: DOCUSATE SODIUM 100 MG CAPSULE. PO SCH (08:47)
[2017-05-05] MEDS: RANOLAZINE 500 MG TAB.ER.12H PO SCH (08:47)
[2017-05-05] MEDS: FAMOTIDINE 20 MG TABLET. PO SCH (08:47)
[2017-05-05 11:00] VITALS: BP 154/65
--- NOTE | 2017-05-05 13:23 | PDOC ---
PROGRESS NOTES Chief Complaint Chief Complaint Bradycardia Syncope CHF Coronary artery disease Hypertension Hyperlipidemia COPD Allergic rhinitis History of Present Illness History of Present Illness Pt was sitting in her chair next to her bed when seen. She was awake, but tired. Vitals Vitals Vital Signs Date Time Temp Pulse Resp B/P (MAP) Pulse Ox O2 Delivery O2 Flow Rate FiO2 05/05/17 11:00 98.1 84 20 154/65 (94) 95 Nasal Cannula 2.0 98.1 Physical Exam Physical Exam Psych: Mood stated as "ok", affect was blunted Eyes: sclera anicteric, no conjunctival injection HENT: MMM, no throat erythema Neuro: boilermaker II-XII grossly intact b/l General: Alert, Cooperative, No acute distress Heart: Regular rate, Normal S1, Normal S2, No murmurs Lungs: Clear, Other (No crackles or wheezes) Extremities: No clubbing, No cyanosis Labs LABS Laboratory Tests Test 05/05/17 04:35 White Blood Count 6.2 x10^3/uL (4.0-11.0) Red Blood Count 4.26 x10^6/uL (3.50-5.40) Hemoglobin 13.1 g/dL (12.0-15.5) Hematocrit 39.5 % (36.0-47.0) Mean Corpuscular Volume 93 fL (79-100) Mean Corpuscular Hemoglobin 31 pg (25-35) Mean Corpuscular Hemoglobin Concent 33 g/dL (31-37) Red Cell Distribution Width 13.5 % (11.5-14.5) Platelet Count 130 x10^3/uL (140-400) Neutrophils (%) (Auto) 69 % (31-73) Lymphocytes (%) (Auto) 21 % (24-48) Monocytes (%) (Auto) 7 % (0-9) Eosinophils (%) (Auto) 2 % (0-3) Basophils (%) (Auto) 1 % (0-3) Neutrophils # (Auto) 4.3 x10^3uL (1.8-7.7) Lymphocytes # (Auto) 1.3 x10^3/uL (1.0-4.8) Monocytes # (Auto) 0.5 x10^3/uL (0.0-1.1) Eosinophils # (Auto) 0.1 x10^3/uL (0.0-0.7) Basophils # (Auto) 0.0 x10^3/uL (0.0-0.2) Sodium Level 139 mmol/L (136-145) Potassium Level 3.2 mmol/L (3.5-5.1) Chloride Level 104 mmol/L (98-107) Carbon Dioxide Level 29 mmol/L (21-32) Anion Gap 6 (6-14) Blood Urea Nitrogen 17 mg/dL (7-20) Creatinine 1.1 mg/dL (0.6-1.0) Estimated GFR (Cockcroft-Gault) 48.8 Glucose Level 98 mg/dL (70-99) Calcium Level 8.9 mg/dL (8.5-10.1) Magnesium Level 1.9 mg/dL (1.8-2.4) Review of Systems Review of Systems Admits to dizziness and fatigue. Denies chest pain, cough, or shortness of breath. Assessment and Plan Assessmemt and Plan ASSESSMENT: Bradycardia Syncope CHF Coronary artery disease Hypertension Hyperlipidemia COPD Allergic rhinitis PLAN: Continue monitoring labs Appreciate inputs from subspecialists PT/OT Possible discharge home if ok with cardiology Follow up with PCP 1 week after discharge Problems: Comment Review of Relevant I have reviewed the following items surekha (where applicable) has been applied. Labs Laboratory Tests Test 05/04/17 03:30 05/04/17 07:00 05/05/17 04:35 White Blood Count 8.1 x10^3/uL (4.0-11.0) 6.2 x10^3/uL (4.0-11.0) Red Blood Count 4.04 x10^6/uL (3.50-5.40) 4.26 x10^6/uL (3.50-5.40) Hemoglobin 12.6 g/dL (12.0-15.5) 13.1 g/dL (12.0-15.5) Hematocrit 38.5 % (36.0-47.0) 39.5 % (36.0-47.0) Mean Corpuscular Volume 95 fL (79-100) 93 fL (79-100) Mean Corpuscular Hemoglobin 31 pg (25-35) 31 pg (25-35) Mean Corpuscular Hemoglobin Concent 33 g/dL (31-37) 33 g/dL (31-37) Red Cell Distribution Width 13.8 % (11.5-14.5) 13.5 % (11.5-14.5) Platelet Count 129 x10^3/uL (140-400) 130 x10^3/uL (140-400) Neutrophils (%) (Auto) 69 % (31-73) 69 % (31-73) Lymphocytes (%) (Auto) 22 % (24-48) 21 % (24-48) Monocytes (%) (Auto) 8 % (0-9) 7 % (0-9) Eosinophils (%) (Auto) 1 % (0-3) 2 % (0-3) Basophils (%) (Auto) 0 % (0-3) 1 % (0-3) Neutrophils # (Auto) 5.6 x10^3uL (1.8-7.7) 4.3 x10^3uL (1.8-7.7) Lymphocytes # (Auto) 1.8 x10^3/uL (1.0-4.8) 1.3 x10^3/uL (1.0-4.8) Monocytes # (Auto) 0.6 x10^3/uL (0.0-1.1) 0.5 x10^3/uL (0.0-1.1) Eosinophils # (Auto) 0.1 x10^3/uL (0.0-0.7) 0.1 x10^3/uL (0.0-0.7) Basophils # (Auto) 0.0 x10^3/uL (0.0-0.2) 0.0 x10^3/uL (0.0-0.2) Sodium Level 143 mmol/L (136-145) 139 mmol/L (136-145) Potassium Level 3.6 mmol/L (3.5-5.1) 3.2 mmol/L (3.5-5.1) Chloride Level 107 mmol/L (98-107) 104 mmol/L (98-107) Carbon Dioxide Level 28 mmol/L (21-32) 29 mmol/L (21-32) Anion Gap 8 (6-14) 6 (6-14) Blood Urea Nitrogen 18 mg/dL (7-20) 17 mg/dL (7-20) Creatinine 1.2 mg/dL (0.6-1.0) 1.1 mg/dL (0.6-1.0) Estimated GFR (Cockcroft-Gault) 44.2 48.8 Glucose Level 94 mg/dL (70-99) 98 mg/dL (70-99) Calcium Level 8.9 mg/dL (8.5-10.1) 8.9 mg/dL (8.5-10.1) Magnesium Level 1.9 mg/dL (1.8-2.4) Laboratory Tests Test 05/05/17 04:35 White Blood Count 6.2 x10^3/uL (4.0-11.0) Red Blood Count 4.26 x10^6/uL (3.50-5.40) Hemoglobin 13.1 g/dL (12.0-15.5) Hematocrit 39.5 % (36.0-47.0) Mean Corpuscular Volume 93 fL (79-100) Mean Corpuscular Hemoglobin 31 pg (25-35) Mean Corpuscular Hemoglobin Concent 33 g/dL (31-37) Red Cell Distribution Width 13.5 % (11.5-14.5) Platelet Count 130 x10^3/uL (140-400) Neutrophils (%) (Auto) 69 % (31-73) Lymphocytes (%) (Auto) 21 % (24-48) Monocytes (%) (Auto) 7 % (0-9) Eosinophils (%) (Auto) 2 % (0-3) Basophils (%) (Auto) 1 % (0-3) Neutrophils # (Auto) 4.3 x10^3uL (1.8-7.7) Lymphocytes # (Auto) 1.3 x10^3/uL (1.0-4.8) Monocytes # (Auto) 0.5 x10^3/uL (0.0-1.1) Eosinophils # (Auto) 0.1 x10^3/uL (0.0-0.7) Basophils # (Auto) 0.0 x10^3/uL (0.0-0.2) Sodium Level 139 mmol/L (136-145) Potassium Level 3.2 mmol/L (3.5-5.1) Chloride Level 104 mmol/L (98-107) Carbon Dioxide Level 29 mmol/L (21-32) Anion Gap 6 (6-14) Blood Urea Nitrogen 17 mg/dL (7-20) Creatinine 1.1 mg/dL (0.6-1.0) Estimated GFR (Cockcroft-Gault) 48.8 Glucose Level 98 mg/dL (70-99) Calcium Level 8.9 mg/dL (8.5-10.1) Magnesium Level 1.9 mg/dL (1.8-2.4) Medications Current Medications Influenza Virus Vaccine Quadrival (Fluarix Quad [id number] Syringe) 0.5 ml ONCE ONCE VAX IM Last administered on 05/04/17 15:06; Start 05/02/17 at 09:00; Stop 05/02/17 at 09:01; Status DC Ondansetron HCl (Zofran) 4 mg PRN Q6HRS PRN IV NAUSEA/VOMITING; Start at 06:45; Stop 05/04/17 at 08:49; Status DC Acetaminophen (Tylenol) 650 mg PRN Q6HRS PRN PO MILD PAIN Last administered on 05/04/17 20:26; Start 05/02/17 at 06:45 Hydralazine HCl (Apresoline Inj) 10 mg PRN Q4HRS PRN IVP ELEVATED BP, SEE COMMENTS; Start 05/02/17 at 06:45 Vitamin D (Vitamin D3) 5,000 unit DAILY PO Last administered on 05/05/17 08: 46; Start 05/02/17 at 09:00 Docusate Sodium (Colace) 100 mg BID PO Last administered on 05/05/17 08:47; Start 05/02/17 at 09:00 EZETIMIBE (Zetia) 10 mg DAILY PO Last administered on 05/05/17 08:46; Start 05/02/17 at 09:00 Ranolazine (Ranexa) 500 mg BID PO Last administered on 05/05/17 08:47; Start 05/02/17 at 09:00 Famotidine (Pepcid) 20 mg DAILY PO Last administered on 05/05/17 08:47; Start 05/02/17 at 09:00 Atorvastatin Calcium (Lipitor) 80 mg QHS PO Last administered on 05/04/17 20: 27; Start 05/02/17 at 21:00 Prasugrel (Effient) 10 mg DAILY PO Last administered on 05/05/17 08:46; Start 05/02/17 at 12:30 Atropine Sulfate 0.5 mg 1X PRN PRN IV PER PROTOCOL; Start 05/02/17 at 17:15 Bacitracin 96941 unit/Sodium Chloride 250 ml @ 250 mls/hr 1X ONCE IRR Last administered on 05/03/17 08:57; Start 05/03/17 at 07:45; Stop 05/03/17 at 08 :44; Status DC Cefazolin Sodium/ Dextrose 50 ml @ 100 mls/hr 1X ONCE IV Last administered on 05/03/17 08:58; Start 05/03/17 at 07:45; Stop 05/03/17 at 08:14; Status DC Midazolam HCl (Versed) 5 mg 1X ONCE IV Last administered on 05/03/17 09:01; Start 05/03/17 at 08:45; Stop 05/03/17 at 08:46; Status DC Fentanyl Citrate (Fentanyl 5ml Vial) 250 mcg 1X ONCE IV Last administered on 05/03/17 09:03; Start 05/03/17 at 08:45; Stop 05/03/17 at 08:46; Status DC Lidocaine/ Epinephrine (Xylocaine 2%-Epi 1:100,000) 40 ml 1X ONCE IJ Last administered on 05/03/17 08:57; Start 05/03/17 at 08:45; Stop 05/03/17 at 08 :46; Status DC Hydralazine HCl (Apresoline Inj) 10 mg 1X ONCE IVP Last administered on 09:48; Start 05/03/17 at 09:30; Stop 05/03/17 at 09:31; Status DC Info 1 ea CONT PRN PRN MC PER PROTOCOL; Start 05/03/17 at 10:00 Cefazolin Sodium 50 ml @ 100 mls/hr 1X ONCE IV Last administered on 10:00; Start 05/03/17 at 10:00; Stop 05/03/17 at 10:29; Status DC Ondansetron HCl (Zofran) 4 mg PRN Q6HRS PRN IV NAUSEA/VOMITING; Start at 10:00 Oxycodone/ Acetaminophen (Percocet 5/325) 1 tab PRN Q4HRS PRN PO MILD PAIN Last administered on 05/04/17 12:45; Start 05/03/17 at 10:00 Furosemide (Lasix) 20 mg 1X ONCE IVP Last administered on 05/04/17 15:56; Start 05/04/17 at 16:00; Stop 05/04/17 at 16:01; Status DC Aspirin (Ecotrin) 81 mg DAILYWBKFT PO Last administered on 05/05/17 08:46; Start 05/04/17 at 16:00 Potassium Chloride (Klor-Con) 40 meq 1X ONCE PO Last administered on 08:50; Start 05/05/17 at 08:30; Stop 05/05/17 at 08:31; Status DC Lidocaine/ Epinephrine (Xylocaine 2%-Epi 1:100,000) 20 ml STK-MED ONCE .ROUTE ; Start 05/03/17 at 07:22; Stop 05/05/17 at 11:54; Status DC Midazolam HCl (Versed) 5 mg STK-MED ONCE .ROUTE ; Start 05/03/17 at 08:03; Stop 05/05/17 at 11:56; Status DC Fentanyl Citrate (Fentanyl 5ml Vial) 250 mcg STK-MED ONCE .ROUTE ; Start at 08:03; Stop 05/05/17 at 11:56; Status DC Cefazolin Sodium/ Dextrose 50 ml @ As Directed STK-MED ONCE IV ; Start at 08:03; Stop 05/05/17 at 11:56; Status DC Hydralazine HCl (Apresoline Inj) 20 mg STK-MED ONCE .ROUTE ; Start 05/03/17 at 09:22; Stop 05/05/17 at 11:59; Status DC Active Scripts Active Aspirin Ec (Aspirin) 81 Mg Tablet. 81 Mg PO DAILYWBKFT Reported Acid Humanities Teacher (Ranitidine Hcl) 150 Mg Tablet 150 Mg PO BID Effient (Prasugrel Hcl) 10 Mg Tablet 10 Mg PO DAILY Incruse Ellipta (Umeclidinium [place]) 62.5 Mcg Blst.w.dev 1 Inh INH Carvedilol 25 Mg Tablet 25 Mg PO BID Ventolin Hfa Inhaler (Albuterol Sulfate) 18 Gm Hfa.aer.ad 2 Inh INH Vitamin D3 (Cholecalciferol (Vitamin D3)) 5,000 Unit Capsule 5,000 Unit PO DAILY Colace (Docusate Sodium) 100 Mg Capsule 1 Cap PO BID Crestor (Rosuvastatin Calcium) 20 Mg Tablet 20 Mg PO HS Zetia (Ezetimibe) 10 Mg Tablet 10 Mg PO DAILY Diovan (Valsartan) 320 Mg Tablet 1 Tab PO DAILY Vitals/I & O Vital Sign - Last 24 Hours 05/04/17 05/04/17 05/04/17 05/04/17 13:45 15:01 19:20 19:55 Temp 97.8 98.6 97.8 98.6 Pulse 75 76 Resp 18 18 B/P (MAP) 148/60 (89) 153/74 (100) Pulse Ox 94 90 96 O2 Delivery Nasal Cannula Room Air Room Air Room Air O2 Flow Rate 2.0 05/04/17 05/04/17 05/05/17 05/05/17 20:27 22:55 03:05 07:00 Temp 98.7 98.5 98.2 98.7 98.5 98.2 Pulse 76 75 84 65 Resp 20 20 20 B/P (MAP) 153/74 132/69 (90) 133/69 (90) 133/58 (83) Pulse Ox 97 96 97 O2 Delivery Nasal Cannula Nasal Cannula Nasal Cannula O2 Flow Rate 2.0 2.0 2.0 05/05/17 05/05/17 05/05/17 08:12 08:47 11:00 Temp 98.1 98.1 Pulse 65 84 Resp 20 B/P (MAP) 133/58 154/65 (94) Pulse Ox 95 O2 Delivery Room Air Nasal Cannula O2 Flow Rate 2.0 2.0 Intake and Output 05/04/17 05/04/17 05/05/17 15:00 23:00 07:00 Intake Total 600 ml 660 ml Output Total 1050 ml 200 ml Balance 600 ml -1050 ml 460 ml ERIKA ROBLES III DO May 05, 2017 13:23
[2017-05-05] MEDS: ACETAMINOPHEN 325 MG TABLET. PO PRN (13:36)
[2017-05-07] MEDS ORDERED: PRAS10TA9 PO (13:59)
--- NOTE | 2017-05-09 10:18 | DS ---
DATE OF DISCHARGE: 05/05/2017 ADMISSION DIAGNOSES: Symptomatic bradycardia with syncope. DISCHARGE DIAGNOSIS: Postop permanent pacemaker placement. HOSPITAL COURSE: The patient is a pleasant 71-year-old female, presented with symptomatic bradycardia. She was admitted. We consulted Cardiology. She was taken for permanent pacemaker. Post-procedure, she did well. We discharged to home. DISPOSITION: Home. ACTIVITY: As tolerated. DIET: Low sodium. MEDICATIONS: Please see the MRAD. TOTAL TIME: 34 minutes. ERIKA ROBLES DO DR: IVAN/miguel a JOB#: [id number] / [id number]
[2017-05-12] MEDS ORDERED: RANO500T2 PO (13:23)
[2017-05-13] MEDS ORDERED: AMLO5TAB2 PO (11:55)
== END 2017-05-05 14:45 | disposition home or self-care (01) | DRG 242 ==
LOC: 2 NORTH 00:08 → 1 WEST ICU 17:31 → 2 NORTH 05-03 17:12
PROVIDERS: ADMIT Internal Medicine; ATTEND Internal Medicine
PROC: 0JH606Z Insertion of Pacemaker, Dual Chamber into Chest Subcutaneous Tissue and Fascia, Open Approach (ICD-10-PCS; principal; 2017-05-04)
PROC: 02H63JZ Insertion of Pacemaker Lead into Right Atrium, Percutaneous Approach (ICD-10-PCS; 2017-05-04)
PROC: 02HK3JZ Insertion of Pacemaker Lead into Right Ventricle, Percutaneous Approach (ICD-10-PCS; 2017-05-04)
DX: I44.1 Atrioventricular block, second degree (principal); I50.43 Acute on chronic combined systolic (congestive) and diastolic (congestive) heart failure; R00.1 Bradycardia, unspecified; I11.0 Hypertensive heart disease with heart failure; J44.9 Chronic obstructive pulmonary disease, unspecified; R55 Syncope and collapse; E78.5 Hyperlipidemia, unspecified; I25.10 Atherosclerotic heart disease of native coronary artery without angina pectoris; J30.9 Allergic rhinitis, unspecified; Z98.61 Coronary angioplasty status; Z79.01 Long term (current) use of anticoagulants; Z82.49 Family history of ischemic heart disease and other diseases of the circulatory system
CPT/HCPCS: 33217; 36415; 71010; 71020; 80048; 83735; 84443; 84484; 85025; 85027; 85610; 87641; 90686; 94250; 94640; 99152; 99153; 99406; C1785; C1898; J0360; J0690; J1650; J2250; J3010; J3490; J7050; J7620; J7626; 97116; 97530; J7030

== ENCOUNTER 2017-05-06 01:22 | Inpatient (IN) | payer MEDICARE, MEDICAID ==
[~2017-05-06] VITALS: Ht 167.6 cm; Wt 80.9 kg
[2017-05-06] VITALS (8 sets, daily range): BP systolic 81–152; BP diastolic 42–65
[~2017-05-06 01:22] MED LIST changes: +CARV25TA2 PO; +PRAS10TA9 PO; +RANI-275 PO; +RANO500T2 PO; +UMEC62.5 INH; +VENTOLIN HFA18 GM INH
--- NOTE | 2017-05-06 07:54 | PDOC1 ---
History and Physical Date of Admission Date of Admission DATE: 05/06/17 TIME: 07:44 Identification/Chief Complaint Chief Complaint chest pain Problems: Source Source: Chart review, Patient History of Present Illness History of Present Illness pt transferred from [facility] ER, presented there with severe chest pain, left sided, "stabbing" pain, severe 10/10, with shortness of breath, no diaphoresis, no nausea. This AM, her pain is better, 0.10 pain when at rest, but some soreness, and marked soreness to palpation of area of pacer placement, but she describes this as soreness, not at all similar to the sharp and stabbing pain she had last night has COPD also, no cough, no dyspnea, no sputum, stable Past Medical History Cardiovascular: HTN, Other (symptomatic elyssa) GI: No pertinent hx, GERD Heme/Onc: No pertinent hx Psych: No pertinent hx Musculoskeletal: low back pain Rheumatologic: No pertinent hx Infectious disease: No pertinent hx ENT: No pertinent hx Renal/: No pertinent hx Endocrine: No pertinent hx Dermatology: No pertinent hx Past Surgical History Past Surgical History pacer Family History Family History: No Significant Social History Smoke: <1 pack per day ALCOHOL: none Drugs: None Current Medications Current Medications Current Medications Aspirin (Ecotrin) 81 mg DAILYWBKFT PO ; Start 05/06/17 at 08:00 Vitamin D (Vitamin D3) 5,000 unit DAILY PO ; Start 05/06/17 at 09:00 Docusate Sodium (Colace) 100 mg BID PO ; Start 05/06/17 at 09:00 EZETIMIBE (Zetia) 10 mg DAILY PO ; Start 05/06/17 at 09:00 Prasugrel (Effient) 10 mg DAILY PO ; Start 05/06/17 at 09:00; Stop 05/06/17 at 09:00; Status DC Carvedilol (Coreg) 25 mg BIDWMEALS PO ; Start 05/06/17 at 08:00 Famotidine (Pepcid) 20 mg BID PO ; Start 05/06/17 at 09:00 Atorvastatin Calcium (Lipitor) 80 mg QHS PO ; Start 05/06/17 at 21:00 Losartan Potassium (Cozaar) 100 mg DAILY PO ; Start 05/06/17 at 09:00 Active Scripts Active Aspirin Ec (Aspirin) 81 Mg Tablet. 81 Mg PO DAILYWBKFT Reported Acid Ap Operator (Ranitidine Hcl) 150 Mg Tablet 150 Mg PO BID Incruse Ellipta (Umeclidinium [place]) 62.5 Mcg Blst.w.dev 1 Inh INH Carvedilol 25 Mg Tablet 25 Mg PO BID Ventolin Hfa Inhaler (Albuterol Sulfate) 18 Gm Hfa.aer.ad 2 Inh INH Vitamin D3 (Cholecalciferol (Vitamin D3)) 5,000 Unit Capsule 5,000 Unit PO DAILY Colace (Docusate Sodium) 100 Mg Capsule 1 Cap PO BID Crestor (Rosuvastatin Calcium) 20 Mg Tablet 20 Mg PO HS Zetia (Ezetimibe) 10 Mg Tablet 10 Mg PO DAILY Diovan (Valsartan) 320 Mg Tablet 1 Tab PO DAILY Allergies Allergies: Coded Allergies: No Known Drug Allergies (Unverified , 07/18/14) ROS General: YES: Fatigue, No: Chills, Night Sweats, Malaise, Appetite, Other PSYCHOLOGICAL ROS: YES: Sleep disturbances, No: Anxiety, Behavioral Disorder, Concentration difficultie, Decreased libido , Depression, Disorientation, Hallucinations, Hostility, Irritablity, Memory difficulties, Mood Swings, Obsessive thoughts, Other Eyes: No Blurry vision, No Decreased vision, No Double vision, No Dry eyes, No Excessive tearing, No Eye Pain, No Itchy Eyes, No Loss of vision, No Photophobia , No Scotomata, No Uses contacts, No Uses glasses, No Other HEENT: No: Heacaches, Visual Changes, Hearing change, Nasal congestion, Nasal discharge, Oral lesions, Sinus pain, Sore Throat, Epistaxis, Sneezing, Snoring, Tinnitus, Vertigo, Vocal changes, Other Respiratory: No: Cough, Hemoptysis, Orthopnea, Pleuritic Pain, Shortness of breath, SOB with excertion, Sputum Changes, Stridor, Tachypnea, Wheezing, Other Cardiovascular: yes Chest Pain, No Palpitations, No Orthopnea, No Paroxysmal Noc. Dyspnea, No Edema, No Lt Headedness, No Other Gastrointestinal: No Nausea, No Vomiting, No Abdominal Pain, No Diarrhea, No Constipation, No Melena, No Hematochezia, No Other Genitourinary: No Dysuria, No Frequency, No Incontinence, No Hematuria, No Retention, No Discharge, No Urgency, No Pain, No Flank Pain, No Other, No , No , No , No , No , No , No Musculoskeletal: Yes Joint Pain, Yes Joint Stiffness, No Gait Disturbance, No Joint Swelling, No Muscle Pain, No Muscular Weakness , No Pain In:, No Swelling In:, No Other Neurological: No Behavorial Changes, No Bowel/Bladder ControlChng, No Confusion , No Dizziness, No Gait Disturbance, No Headaches, No Impaired Coord/balance, No Memory Loss, No Numbness/Tingling, No Seizures, No Speech Problems, No Tremors, No Visual Changes, No Weakness, No Other Skin: Yes Dry Skin, No Eczema, No Hair Changes, No Lumps, No Mole Changes, No Mottling, No Nail Changes, No Pruritus, No Rash, No Skin Lesion Changes, No Other, No Acne Physical Exam General: Alert, Oriented X3, Cooperative, No acute distress HEENT: Atraumatic, PERRLA Lungs: Clear to auscultation, Normal air movement Heart: S1S2, no gallops, no murmurs Abdomen: Normal bowel sounds, Soft Rectal Exam: not examined Extremities: No clubbing, No edema, Normal pulses Skin: No breakdown, No significant lesion Neuro: Normal speech, Normal tone, Sensation intact, Cranial nerves 3-12 NL Psych/Mental Status: Mental status NL, Mood NL Vitals Vitals Vital Signs Date Time Temp Pulse Resp B/P (MAP) Pulse Ox O2 Delivery O2 Flow Rate FiO2 05/06/17 07:36 Room Air 05/06/17 07:05 98.3 80 18 114/54 (74) 92 98.3 VTE Prophylaxis Ordered VTE Prophylaxis Devices: No VTE Pharmacological Prophylaxi: Yes Assessment/Plan Assessment/Plan chest pain, angina, hx CAD, is she still supposed to be on Effient? looks discontinued, will discuss with CV, recent symptomatic bradycardia, pacer placement, COPD, stable, cont MANOLO Luz MD May 06, 2017 07:54
[2017-05-06] MEDS: FAMOTIDINE 20 MG TABLET. PO SCH ×2 (07:59→20:45)
[2017-05-06] MEDS: ASPIRIN ENTERIC COATED 81 MG TABLET.DR. PO SCH (07:59)
[2017-05-06] MEDS: DOCUSATE SODIUM 100 MG CAPSULE. PO SCH ×2 (07:59→20:45)
[2017-05-06] MEDS: ENOXAPARIN 40 MG/0.4 ML SYRINGE. SQ SCH (07:59)
[2017-05-06] MEDS: CHOLECALCIFEROL (VITAMIN D3) 5,000 UNIT CAPSULE PO SCH (07:59)
[2017-05-06] MEDS: EZETIMIBE 10 MG TABLET. PO SCH (07:59)
[2017-05-06] MEDS: CARVEDILOL 12.5 MG TABLET. PO SCH ×2 (08:00→14:29)
[2017-05-06] MEDS: LOSARTAN POTASSIUM 50 MG TABLET. PO SCH (08:00)
[2017-05-06] MEDS: BUDESONIDE 0.5 MG/2 ML NEBU. NEB SCH ×2 (08:35→19:54)
[2017-05-06] MEDS: IPRATRPIUM/ALBUTEROL 0.5/2.5MG 3 ML NEBU. NEB SCH ×4 (08:35→19:54)
[2017-05-06] MEDS ORDERED: PRASUGREL 10 MG TABLET. PO SCH (09:00)
[2017-05-06] MEDS ORDERED: IV NORMAL SALINE 250ML 250 ML IV ONE ×2 (10:15)
--- NOTE | 2017-05-06 12:36 | PDOC ---
CARDIO Progress Notes Date and Time Date of Service 05/06/2017 Time of Evaluation 1200 Subjective Subjective: No Chest Pain, No shortness of breath, No Palpitations Vitals Vitals Vital Signs Date Time Temp Pulse Resp B/P (MAP) Pulse Ox O2 Delivery O2 Flow Rate FiO2 05/06/17 11:26 Room Air 05/06/17 10:35 67 107/43 (64) 05/06/17 10:23 98.7 18 93 98.7 05/06/17 08:38 93.0 Weight Weight [ ] Physical Exam HEENT: Neck Supple W Full Motion Chest: Symmetric LUNGS: Clear to Auscultation Heart: S1S2, RRR (Paced) Abdomen: Soft N/T Extremities: No Edema, No Calf Tenderness Neurology: alert, oriented, follow commands Other Exams Left pacemaker incision site intact no redness with steri strips. Slight tenderness with palpation to adjacent site, neurovascular status intact to LUE. Sling in place. Assessment Assessment This is a 71 yo female admitted initially at [facility] for left sided chest pain. This was when she was watching tv and smoking tobacco. This is sharp started under her left breast then close to her pacemaker site. Denies any nausea or SOA. She recently had PPM to her left chest and at that time was already having incisional discomfort with small hematoma around device site. Her BP and pain was controlled prior to recent discharge. She then present at [facility] with BP at 200/99. She was going to take her bp meds last night but did not because of the chest pain and her son rushed her to ED. She was treated with clonidine (pill and patch) and NTG and presently is hypotensive. She feels tired but otherwise no dizziness and no further CP. 1. Atypical chest pain: EKG with paced rhythm. Initial trop at 0.087 likely from recent PPM 2. Accelerated HTN: treated with clonidine and NTG patch 3. Hypotension: SBP noted at 80s which is due to transdermal clonidine and NTG and also losartan and coreg were given. No symptoms at this time. 4. Recent PPM for symptomatic bradycardia with syncope: 05/02 ([facility]), repeat interrogation with normal device function 4. CAD: PCI/MARTINE at LM. 5. HLP Recommendations 1. DC transdermal. clonidine and NTG. Hold further coreg today. Monitor BP. 2. Will resume prasugrel tomorrow. Follow up TTE today. 3. Continue with secondary prevention 4. Repeat troponin <Conclusion> [facility] Left main lesion of 40-60%. Mild to moderate disease in the LAD and the right coronary artery vessels. Mid 85% lesion in the left circumflex vessel which was described as a chronic occlusion of the time of bypass surgery. No aortic root dilatation but areas of calcification near the left main. DATE: 07/14/14 1307 Conclusion Successful PCI/drug eluting stent placement to the left main coronary artery Recommendations 1. Aspirin 81 mg daily 2. Ticagrelor 90 mg twice daily for preferably one year 3. Cardiovascular risk factor modification DATE: 07/18/14 1440 <Conclusion> TTE Technically limited study. The left ventricular systolic function is normal and the ejection fraction is within normal range. The Ejection Fraction is 60-65%. Transmitral Doppler flow pattern is Grade II-pseudonormal filling dynamics. Doppler and Color Flow revealed mild to moderate mitral regurgitation. Doppler and Color Flow revealed no tricuspid valve regurgitation noted. Tricuspid regurgitant velocity is not well defined. The IVC is normal in size and collapses >50% with inspiration. There is no evidence of significant pericardial effusion. DATE: 07/12/14 1006 BRIANNA MARTIN APRN May 06, 2017 12:36
[2017-05-06] MEDS ORDERED: ATORVASTATIN CALCIUM 40 MG TABLET. PO SCH (21:00)
[2017-05-07 03:14] VITALS: BP 128/54
[2017-05-07] MEDS: IPRATRPIUM/ALBUTEROL 0.5/2.5MG 3 ML NEBU. NEB SCH ×2 (05:58→12:01)
[2017-05-07] MEDS: BUDESONIDE 0.5 MG/2 ML NEBU. NEB SCH (05:58)
[2017-05-07 07:20] VITALS: BP 140/62
[2017-05-07] MEDS: CHOLECALCIFEROL (VITAMIN D3) 5,000 UNIT CAPSULE PO SCH (08:14)
[2017-05-07] MEDS: ASPIRIN ENTERIC COATED 81 MG TABLET.DR. PO SCH (08:14)
[2017-05-07] MEDS: DOCUSATE SODIUM 100 MG CAPSULE. PO SCH (08:14)
[2017-05-07] MEDS: FAMOTIDINE 20 MG TABLET. PO SCH (08:15)
[2017-05-07] MEDS: EZETIMIBE 10 MG TABLET. PO SCH (08:15)
[2017-05-07] MEDS: CARVEDILOL 12.5 MG TABLET. PO SCH (08:15)
[2017-05-07] MEDS: LOSARTAN POTASSIUM 50 MG TABLET. PO SCH (08:15)
[2017-05-07] MEDS: ENOXAPARIN 40 MG/0.4 ML SYRINGE. SQ SCH (08:16)
[2017-05-07 10:00] LABS: CALCIUM 8.7 mg/dL (8.5-10.1); CREATININE 1.4 mg/dL (0.6-1.0); MAGNESIUM 1.9 mg/dL (1.8-2.4); POTASSIUM 3.9 mmol/L (3.5-5.1)
[2017-05-07 10:34] VITALS: BP 125/51
--- NOTE | 2017-05-07 10:43 | PDOC ---
BRIANNA MARTIN ADJUNCT NURSING FACULTY 05/07/17 1043: CARDIO Progress Notes Date and Time Date of Service 05/06/2017 Time of Evaluation 1030 Subjective Subjective: No Chest Pain, No shortness of breath, No Palpitations Vitals Vitals Vital Signs Date Time Temp Pulse Resp B/P (MAP) Pulse Ox O2 Delivery O2 Flow Rate FiO2 05/07/17 08:15 76 140/62 05/07/17 07:48 Room Air 05/07/17 07:20 98.3 20 96 98.3 05/06/17 08:38 93.0 Weight Weight [ ] Input and Output Intake and Output Intake and Output 05/07/17 07:00 Intake Total 1000 ml Balance 1000 ml Intake Oral 1000 ml # Voids 5 Laboratory Labs Laboratory Tests Test 05/06/17 12:25 05/06/17 18:50 05/07/17 09:30 Troponin I Quantitative 0.336 ng/mL (0.000-0.055) 0.157 ng/mL (0.000-0.055) Sodium Level 145 mmol/L (136-145) Potassium Level 3.9 mmol/L (3.5-5.1) Chloride Level 109 mmol/L (98-107) Carbon Dioxide Level 28 mmol/L (21-32) Anion Gap 8 (6-14) Blood Urea Nitrogen 25 mg/dL (7-20) Creatinine 1.4 mg/dL (0.6-1.0) Estimated GFR (Cockcroft-Gault) 37.0 Glucose Level 118 mg/dL (70-99) Calcium Level 8.7 mg/dL (8.5-10.1) Magnesium Level 1.9 mg/dL (1.8-2.4) Physical Exam HEENT: Neck Supple W Full Motion Chest: Symmetric LUNGS: Other (faint basilar crackles) Heart: S1S2, RRR (paced) Abdomen: Soft N/T Extremities: No Edema, No Calf Tenderness Neurology: alert, oriented, follow commands Other Exams left chest pacer sit incision well approximated, discomfort controlled Assessment Assessment 1. Atypical chest pain: likely incisional pain. EKG with paced rhythm. Peaked trop at 0.3 with HTN/hypotension issues and recent PPM placement. CP free and no SOA, [facility] 2. Accelerated HTN: controlled 3. Hypotension: med related with addition of NTG/clonidine in ED 4. PPM/symptomatic SB 5. CAD: PCI/MARTINE at LM. Stable. 6. HLP 7. Prerenal azotemia: due to dehydration and hypotensive issues. Recommendations 1. Continue home BP meds. Restart prasugrel when home. 2. Continue with secondary prevention. Encourage hydration adequacy 3. Follow in 2 weeks for wound check 4. Anticipate DC this afternoon. ARTHUR PRICE MD 05/07/17 2232: CARDIO Progress Notes Plan Plan Pt. seen and examined. Agree with above [employer] INS[employer] REPAIRER note. Supportive care. f/u in the office in 2 weeks. thanks BRIANNA MARTIN APRN May 07, 2017 10:43 ARTHUR PRICE MD May 07, 2017 22:32
[2017-05-07] MEDS ORDERED: PRAS10TA9 PO (13:59)
[2017-05-08] MEDS ORDERED: FAMOTIDINE 20 MG TABLET. PO SCH (09:00)
--- NOTE | 2017-05-12 13:05 | PDOC3 ---
Discharge Summary Visit Information Date of Admission: May 06, 2017 Date of Discharge: May 07, 2017 Admitting Diagnosis: chest pain Final Diagnosis chest pain, angina, possible pain from recent pacemaker hx CAD, on Effient recent symptomatic bradycardia, reecnt pacer placement days earlier COPD, stable, cont nebs HTN hx, with hypotension on admit hyperlipids pre renal azotemia, mild dehydrated Brief Hospital Course Allergies Allergies Coded Allergies Type Severity Reaction Last Updated Verified No Known Drug Allergies 07/18/14 No Brief Hospital Course Ms. Sanchez is a 71 old DC here 2 days prior for symptomatic elyssa, pacer placed. went to ER at [place], acute crushing pain, she felt angina, transfered here CV consulted, ACS ruled out, they would like to follow outpatient in clinic , pain is positional, might be pacer getting set Discharge Information Condition at Discharge: Improved Follow Up: Weeks Disposition/Orders: D/C to Home Scheduled Aspirin (Aspirin Ec), 81 MG PO DAILYWBKFT Carvedilol (Carvedilol), 25 MG PO BID, (Reported) Cholecalciferol (Vitamin D3) (Vitamin D3), 5,000 UNIT PO DAILY, (Reported) Docusate Sodium (Colace), 1 CAP PO BID, (Reported) Ezetimibe (Zetia), 10 MG PO DAILY, (Reported) Prasugrel Hcl (Effient), 1 TAB PO DAILY Ranitidine Hcl (Acid Senior Marketing Associate), 150 MG PO BID, (Reported) Rosuvastatin Calcium (Crestor), 20 MG PO HS, (Reported) Valsartan (Diovan), 1 TAB PO DAILY, (Reported) Scheduled PRN Albuterol Sulfate (Ventolin Hfa Inhaler), 2 INH INH QID PRN for SHORTNESS OF BREATH, (Reported) Umeclidinium [place] (Incruse Ellipta), 1 INH INH BID PRN for SHORTNESS OF BREATH, (Reported) Discontinued Medications Prasugrel Hcl (Effient), 10 MG PO DAILY, (Reported) MANOLO VAZ MD May 12, 2017 13:05
[2017-05-12] MEDS ORDERED: RANO500T2 PO (13:23)
[2017-05-13] MEDS ORDERED: AMLO5TAB2 PO (11:55)
== END 2017-05-07 14:52 | disposition home or self-care (01) | DRG 316 ==
LOC: 6 SOUTH 03:48
PROVIDERS: ADMIT Internal Medicine; ATTEND Internal Medicine
DX: T82.847A Pain due to cardiac prosthetic devices, implants and grafts, initial encounter (principal); I95.9 Hypotension, unspecified; I25.119 Atherosclerotic heart disease of native coronary artery with unspecified angina pectoris; J44.9 Chronic obstructive pulmonary disease, unspecified; E86.0 Dehydration; F17.210 Nicotine dependence, cigarettes, uncomplicated; I10 Essential (primary) hypertension; E78.5 Hyperlipidemia, unspecified; Z95.0 Presence of cardiac pacemaker; Z95.5 Presence of coronary angioplasty implant and graft
CPT/HCPCS: 36415; 80048; 83735; 84484; 94250; 94640; J1650; J7050; J7620; J7626; J7030

== ENCOUNTER 2019-04-22 07:11 | Outpatient (CLI) | payer MEDICARE, MEDICAID ==
[2019-04-22] VITALS (12 sets, daily range): BP systolic 104–145; BP diastolic 43–68
[~2019-04-22] VITALS: Ht 167.6 cm; Wt 80.7 kg
[~2019-04-22 07:11] MED LIST changes: +AMLO5TAB10 PO; -ASPI81TA44 PO; +ASPI81TA59 PO; -EZET10TA18 PO; +EZET10TA20 PO; -NITR0.4T SL; +NITR0.4T24 SL
[2019-04-22 07:43] LABS: HEMATOCRIT 40.4 % (36.0-47.0); HEMOGLOBIN 13.5 g/dL (12.0-15.5); RED BLOOD COUNT 4.38 x10^6/uL (3.50-5.40); RED CELL DISTRIBUTION WIDTH 13.4 % (11.5-14.5); WHITE BLOOD COUNT 6.1 x10^3/uL (4.0-11.0)
[2019-04-22 07:52] LABS: PROTHROMBIN TIME PATIENT 12.5 SEC (11.7-14.0)
[2019-04-22 07:56] LABS: CALCIUM 8.8 mg/dL (8.5-10.1); CREATININE 1.2 mg/dL (0.6-1.0); GFR 43.9; POTASSIUM 3.8 mmol/L (3.5-5.1)
[2019-04-22] MEDS ORDERED: HEPARIN for ARTERIAL LINE 1,500 ML ONE (07:58)
[2019-04-22] MEDS ORDERED: LIDOCAINE 1% Multi-Dose 20 ML VIAL. ONE (07:58)
[2019-04-22] MEDS ORDERED: IODIXANOL 320 MG/ML 100 ML VIAL. ONE (07:58)
[2019-04-22] MEDS ORDERED: TRAZ-118 PO (08:16)
[2019-04-22] MEDS ORDERED: MOME13HF IH (08:18)
[2019-04-22] MEDS ORDERED: HEPARIN for IV BOLUS 10,000 UNIT/10 ML VIAL. ONE (08:19)
[2019-04-22] MEDS ORDERED: VERAPAMIL 5 MG/2 ML VIAL. ONE (08:19)
[2019-04-22] MEDS ORDERED: NITROGLYCERIN 200 MCG/2 ML SYRINGE FOR CATH/VASC LAB. ONE ×2 (08:19→09:12)
[2019-04-22] MEDS ORDERED: fentaNYL PF VIAL 100 MCG/2 ML VIAL ONE (08:19)
[2019-04-22] MEDS ORDERED: MIDAZOLAM HCL/PF 2 MG/2 ML VIAL. ONE ×2 (08:19→09:05)
[2019-04-22] MEDS ORDERED: HEPARIN for IV BOLUS 10,000 UNIT/10 ML VIAL. IART ONE (08:30)
[2019-04-22] MEDS ORDERED: MIDAZOLAM HCL/PF 2 MG/2 ML VIAL. IV ONE (08:30)
[2019-04-22] MEDS ORDERED: VERAPAMIL 5 MG/2 ML VIAL. IART ONE (08:30)
[2019-04-22] MEDS ORDERED: fentaNYL PF VIAL 100 MCG/2 ML VIAL IV ONE (08:30)
[2019-04-22] MEDS ORDERED: LIDOCAINE 1% PF 2 ML VIAL. INJ ONE (08:30)
[2019-04-22] MEDS ORDERED: NITROGLYCERIN 200 MCG/2 ML SYRINGE FOR CATH/VASC LAB. IART ONE (08:30)
[2019-04-22] MEDS ORDERED: IODIXANOL 320 MG/ML 100 ML VIAL. IART ONE (08:30)
[2019-04-22] MEDS ORDERED: LIDOCAINE 1% Multi-Dose 20 ML VIAL. INJ ONE (09:15)
[2019-04-22] MEDS ORDERED: hydrALAZINE 20 MG/ML VIAL. ONE (09:16)
[2019-04-22] MEDS ORDERED: hydrALAZINE 20 MG/ML VIAL. IVP ONE (09:30)
--- NOTE | 2019-04-22 10:01 | CARD ---
MR#: [id number] Date of Study: 04/22/2019 Ordering Physician: ARTHUR PRICE, Referring Physician: ARTHUR PRICE, Tech: STEVEN PINZON RTR APPROVED REPORT Technologist: STEVEN PINZON RTR Nurse: Ruth Garcia RN Procedure(s) performed: MODERATE SEDATION TIME: 50 MINUTES FLUORO TIME: 2.5 MIN DOSE: 24.8 CONTRAST: 41 CC [facility], Coronary angiography HISTORY The patient is a 73 year-old female with a history of : diabetes mellitus with treatment, coronary ar erlin disease, tobacco history() , hypertension, dyslipidemia. INDICATION The indication(s) include : unstable angina . [facility] [place] Clinical Frailty Scale [facility] [place] Clinical Frailty Scale: Moderately Frail Heart Failure Heart Failure: Yes If Yes, Newly Diagnosed: No If Yes, HF Type: Diastolic If Yes, NYHA Class: Class II PROCEDURE NARRATIVE After explaining the risks and benefits of the procedure and alternatives, informed consent was obtai joo. The patient was brought electively to the cardiac catheterization lab in a fasting state. A elyssa eout was performed confirming the patient's name, date of , procedure, and site of procedure. A ll necessary personnel were wearing the appropriate protective equipment and radiation monitor device s. (See nursing notes for medications administered). Initial attempts at right radial access were u nsuccessful. The right groin was sterilely prepped and draped in the usual fashion. The right groin was infiltrated with 10 mL of 2% lidocaine for subcutaneous anesthesia. A 6 F sheath was inserted in to the right femoral artery without difficulty. Right and left coronary angiography was performed us ing a JR4 and JL4 catheter. Left ventricular end diastolic pressure was obtained with a JR4 catheter and pullback was performed. All catheter exchanges and advancements were performed over a guidewire . At case completion the right femoral sheath was removed and hemostasis was achieved with manual co mpression. There were no acute complications. HEMODYNAMICS: AO: 178/89 LVEDP 20 mm Hg No gradient on LV to aortic pullback. LEFT VENTRICULOGRAM: Deferred due to known normal EF and CKD. CORONARY ANGIOGRAPHY: LM is a large caliber vessel with a patent previously placed stent. LAD is a large caliber vessel with normal angiographic appearance. D1 is a moderate caliber vessel with normal angiographic appearance. LCx is a small caliber non-dominant vessel with a proximal 100% occlusion. RCA is a large caliber dominant vessel with normal angiographic appearance. RPDA is a moderate caliber vessels with normal angiographic appearance. Conclusion 1. Acute on chronic diastolic HF. 2. Two vessel coronary disease with patent LM stent. No significant change from heart cath in 2104. Recommendations Aggressive Medical Therapy Signed by : Arthur Price, Electronically Approved : 04/22/2019 10:01:31
[2019-04-22] MEDS ORDERED: 0.9 % SODIUM CHLORIDE 10 ML DISP.SYRIN. IV PRN (14:00)
[2019-04-22] MEDS ORDERED: NITROGLYCERIN SUBLINGUAL 0.4 MG BOTTLE OF 25. SL PRN (14:00)
--- NOTE | 2019-04-22 14:38 | NUR ---
Discharge Note: FRANCESCA OLIVAREZ Discharge instructions and discharge home medications reviewed with Patient and daughter and a copy given. All questions have been answered and understanding verbalized. Patient educated on the importance of taking medications consistantly, patient verbalized understanding. Patient ate breakfast without difficulties. The following instructions and handouts were given: Moderate sedation and groin site care. Discontinued lines and drains: Left hand, dressing clean dry intact. Patient discharged to home with daughter via wheelchair to private vehicle.
== END 2019-04-22 14:15 | disposition home or self-care (01) ==
LOC: CCL 07:11
PROVIDERS: ATTEND Internal Medicine Cardiovascular Disease
DX: I25.110 Atherosclerotic heart disease of native coronary artery with unstable angina pectoris (principal); I11.0 Hypertensive heart disease with heart failure; I50.33 Acute on chronic diastolic (congestive) heart failure; E11.51 Type 2 diabetes mellitus with diabetic peripheral angiopathy without gangrene; K21.9 Gastro-esophageal reflux disease without esophagitis; F32.9 Major depressive disorder, single episode, unspecified; J44.9 Chronic obstructive pulmonary disease, unspecified; E78.5 Hyperlipidemia, unspecified; Z95.0 Presence of cardiac pacemaker; Z79.82 Long term (current) use of aspirin; Z90.710 Acquired absence of both cervix and uterus; Z95.1 Presence of aortocoronary bypass graft; Z87.891 Personal history of nicotine dependence; Z79.84 Long term (current) use of oral hypoglycemic drugs
CPT/HCPCS: 36415; 80048; 85027; 85610; 93458; 99152; 99153; C1769; C1892; J0360; J1644; J2250; J3010; J3490; Q9967

== ENCOUNTER 2021-01-09 08:53 | Outpatient (CLI) | payer MEDICARE, MEDICAID ==
[2021-01-09] VITALS (15 sets, daily range): BP systolic 122–147; BP diastolic 48–70
[~2021-01-09] VITALS: Ht 167.6 cm; Wt 85.5 kg
[~2021-01-09 08:53] MED LIST changes: +AMLO-186 PO; -AMLO5TAB10 PO; -ASPI-612 PO; +ASPI-886 PO; +TRAZ-118 PO
[2021-01-09] MEDS ORDERED: IODIXANOL 320 MG/ML 100 ML VIAL. ONE (09:28)
[2021-01-09] MEDS ORDERED: LIDOCAINE 1% Multi-Dose 20 ML VIAL. ONE (09:28)
[2021-01-09] MEDS ORDERED: HEPARIN for ARTERIAL LINE 1,500 ML ONE (09:28)
[2021-01-09] MEDS ORDERED: IODIXANOL 320 MG/ML 100 ML VIAL. IART ONE (09:45)
[2021-01-09] MEDS ORDERED: LIDOCAINE 1% Multi-Dose 20 ML VIAL. INJ ONE (09:45)
[2021-01-09] MEDS ORDERED: fentaNYL PF VIAL 100 MCG/2 ML VIAL IV ONE (09:45)
[2021-01-09] MEDS ORDERED: MIDAZOLAM HCL/PF 2 MG/2 ML VIAL. IV ONE (09:45)
[2021-01-09] MEDS ORDERED: DEXL30CA PO (09:52)
[2021-01-09] MEDS ORDERED: PREG-9 PO (09:52)
[2021-01-09] MEDS ORDERED: RANO500T2 PO (09:52)
[2021-01-09] MEDS ORDERED: TIOT18CA IH (09:52)
[2021-01-09 10:02] LABS: HEMATOCRIT 39.3 % (36.0-47.0); HEMOGLOBIN 13.1 g/dL (12.0-15.5); RED BLOOD COUNT 4.39 x10^6/uL (3.50-5.40); RED CELL DISTRIBUTION WIDTH 14.5 % (11.5-14.5); WHITE BLOOD COUNT 5.7 x10^3/uL (4.0-11.0)
[2021-01-09 10:06] LABS: CALCIUM 9.1 mg/dL (8.5-10.1); CREATININE 1.6 mg/dL (0.6-1.0); GFR 31.3; POTASSIUM 4.5 mmol/L (3.5-5.1)
[2021-01-09 10:13] LABS: PROTHROMBIN TIME PATIENT 12.6 SEC (11.7-14.0)
--- NOTE | 2021-01-09 10:39 | PDOC ---
MODERATE SEDATION ASSESSMENT RISKS/ALTERNATIVES Risks/Alternatives Risks and alternatives of this type of sedation and procedure discussed with: RISK/ALTERNATIVES: Patient H & P ON CHART H & P H & P on chart and reviewed for co-morbid conditions and appropriate labs. H&P ON CHART: Yes STATUS PREG STATUS ASSESSED: N/A MEDS/ALLERGIES REVIEWED Meds/Allergies Reviewed Medications and Allergies including time and route of recently administered narcotics and sedatives. MEDS/ALLERGIES REVIEWED: Yes ASA RATING ASA RATING: II AIRWAY ASSESSMENT Airway Assessment Airway patency, oral function limitations, presence of caps, crowns, dentures, partials, and ability to extend neck assessed. AIRWAY ASSESSMENT: Yes MALLAMPATI SCORE MALLAMPATI SCORE: II PRE-SEDATION ASSESSMENT PRE-SEDATION ASSESSMENT: Yes ARTHUR PRICE MD Jan 09, 2021 10:39
[2021-01-09] MEDS ORDERED: MIDAZOLAM HCL/PF 2 MG/2 ML VIAL. ONE (10:43)
[2021-01-09] MEDS ORDERED: HEPARIN for IV BOLUS 10,000 UNIT/10 ML VIAL. ONE (10:47)
[2021-01-09] MEDS ORDERED: fentaNYL PF VIAL 100 MCG/2 ML VIAL ONE (10:50)
[2021-01-09] MEDS ORDERED: HEPARIN for IV BOLUS 10,000 UNIT/10 ML VIAL. IV ONE (11:00)
[2021-01-09] MEDS ORDERED: CILO100T PO (14:09)
[2021-01-09] MEDS ORDERED: FURO-68 PO (14:09)
--- NOTE | 2021-01-09 15:15 | NUR ---
DISCHARGE INSTRUCTIONS REVIEWED AND QUESTIONS ANSWERED. PRESCRIPTIONS GIVEN TO PATIENT AND CALLED TO [facility]. LEFT AC PIV DC'D, NO COMPLICATIONS. RIGHT GROIN SITE UNCHANGED AND DRESSING REMAINED C/D/I. PT'S FAMILY AT THE BEDSIDE. PT TAKEN VIA WHEELCHAIR FOR DC WITH FAMILY.
--- NOTE | 2021-01-09 17:57 | CARD ---
MR#: [id number] Date of Study: 01/09/2021 Ordering Physician: ARTHUR KIM, Referring Physician: ARTHUR KIM, Tech: Tracy Cota RT(R) APPROVED REPORT Patient StatusOUT-PATIENT Log Tumbler: Tracy Cota RT(R) Procedure(s) performed: Moderate Sedation Time: 60 minutes Dose: 70.1 gy cm2 Fluoro Time: 6.4 minutes Contrast: 69 Visi CASE TECHNIQUE After explaining the risks, benefits, and alternative options, informed consent was obtained from the patient. IV conscious sedation was used throughout procedure with appropriate monitoring and was per formed in the presence of a registered nurse who was an independent trained observer other than the kathy forte performing the procedure. During this case, Fluoroscopy and low osmolar contrast were used f or imaging. Specimen(s) Removed: N/A Estimated Blood loss: 20 cc's. PROCEDURE NARRATIVE Clinical information: 75-year-old woman presented to the [facility] for aortogram with runoff in the setting of bilateral low er extremity claudication. Procedure details: After appropriate informed consent the bilateral groins were prepped and draped in usual sterile fash ion. Under 1% lidocaine local anesthesia a 5 [place]an sheath was placed in the left common femoral art gunjan via the modified Seldinger technique. A Glidewire was used to traverse the iliac vasculature due to significant vascular disease. Aortogram was a digital subtraction angiography of the bilateral l ower extremities was performed with a 5 [place]an Omni Flush catheter placed in the abdominal aorta. At case completion the sheath was removed and hemostasis was achieved via manual compression. No acute complications noted. Findings: Aorta has mild to moderate diffuse atherosclerosis with the previously placed distal abdominal aortic stent prior to the aortic michelle. There are bilateral common iliac stents in a kissing fashion without any significant stenosis Bilateral external iliac arteries have no significant disease Bilateral common femoral arteries have no significant disease The right SFA has a proximal and mid 80% stenosis The left SFA has mild to moderate diffuse disease Bilateral popliteal arteries are small in caliber but have no significant disease The right anterior tibial and posterior tibial vessels are occluded. There is one-vessel runoff in t he form of peroneal artery The left posterior tibial and peroneal vessels are occluded. There is one-vessel runoff in the form of the anterior tibial artery. Conclusion 1. Patent distal aortic stent 2. Patent bilateral kissing common iliac stents 3. Severe right SFA disease 4. Severe bilateral below-knee disease with one-vessel runoff Recommendations 1. Plan for aggressive medical therapy with initiation of cilostazol and walking program 2. In the event that the cilostazol therapy and walking program did not significantly improve the pa tient's symptoms then would consider complex antegrade right common femoral arterial access for PVI o f the right SFA. Signed by : Arthur Kim, Electronically Approved : 01/09/2021 17:57:28
== END 2021-01-09 15:23 | disposition home or self-care (01) ==
LOC: CCL 08:53
PROVIDERS: ATTEND Internal Medicine Cardiovascular Disease
DX: I70.213 Atherosclerosis of native arteries of extremities with intermittent claudication, bilateral legs (principal); Z20.822 Contact with and (suspected) exposure to COVID-19; I11.0 Hypertensive heart disease with heart failure; I50.9 Heart failure, unspecified; I25.2 Old myocardial infarction; E78.00 Pure hypercholesterolemia, unspecified; J44.9 Chronic obstructive pulmonary disease, unspecified; I25.10 Atherosclerotic heart disease of native coronary artery without angina pectoris; M19.90 Unspecified osteoarthritis, unspecified site; K21.9 Gastro-esophageal reflux disease without esophagitis; Z87.01 Personal history of pneumonia (recurrent); Z87.440 Personal history of urinary (tract) infections; F17.210 Nicotine dependence, cigarettes, uncomplicated; Z79.899 Other long term (current) drug therapy; Z95.1 Presence of aortocoronary bypass graft; Z95.5 Presence of coronary angioplasty implant and graft; Z95.0 Presence of cardiac pacemaker; Z95.4 Presence of other heart-valve replacement; Z98.890 Other specified postprocedural states
CPT/HCPCS: 36200; 36415; 75625; 75716; 80048; 85027; 85610; 87426; 99152; 99153; C1769; C1894; J1644; J2250; J3010; J3490; Q9967